=== PATIENT | male | born 1945 | race Caucasian/White ===

== ENCOUNTER → 2016-10-10 | Day surgery (SDC) | payer MEDICARE, MEDICAID ==
--- NOTE | 2016-10-06 17:01 | Pre-Procedure Note/Attestation ---
Pre-Procedure Note/Attestation Complete Prior to Procedure Planned Procedure: right Procedure Narrative: 1. CATARACT EXTRACTION WITH PHACO AND PC IOL IMPLANTATION, RIGHT EYE. Indications for Procedure Pre-Operative Diagnosis: 1. CATARACT ,RIGHT EYE Attestation I attest that I discussed the nature of the procedure; its benefits; risks and complications; and alternatives (and the risks and benefits of such alternatives ), prior to the procedure, with the patient (or the patient's legal communications representative). I attest that, if there was a reasonable possibility of needing a blood transfusion, the patient (or the patient's legal communications representative) was given the [place] [facility] standardized written summary, pursuant to the William Rozina Blood Safety Act ([place] Health and Safety Code # 1645, as amended). I attest that I re-evaluated the patient just prior to the surgery and that there has been no change in the patient's H&P, except as documented below: LYNDA TIJERINA Oct 06, 2016 17:01
[2016-10-10] VITALS (8 sets, daily range): BP systolic 130–160; BP diastolic 72–89
[~2016-10-10] VITALS: Ht 172.7 cm; Wt 83.9 kg
[~2016-10-10] MED LIST: Akten 3.5% 1ml Btl ONE; BSS 15ml BTL ONE; BSS 500ml btl ONE; Dexamethasone 4mg/ml vial ONE; Diclofenac Sod 0.1% Op Soln ONE; DiphenhydrAMINE 50mg/ml Inj IVP PRN; DiphenhydrAMINE 50mg/ml Inj ONE; EPINEPHrine 1mg/1ml Amp ONE; Gatifloxacin Opth Solution 0.5% ONE; LR 1000ml 1,000 ML IVLG SCH; LR 1000ml ONE; Labetalol 5mg/ml 20ml vial IV PRN; Lidocaine 1% MPF 10mg/ml 5ml ONE; NKM; NS Irrig 1000ml ONE; Phenylephrine 10% Opth Soln 5ml ONE; Povidone-Iodine 5% opth solution ONE; Sodium Hyaluronate 10 mg/ml 0.85ml ONE; Sterile Water Irrig 1000ml IRRIG ONE; Tropicamide 1% Opth Soln ONE; acetaZOLAMIDE 125mg tab ORAL ONE; fentaNYL 100 mcg/2 mL IV ONE
[2016-10-10] MEDS: Tropicamide 1% Opth Soln RIGHT EYE SCH ×3 (07:03→07:26)
[2016-10-10] MEDS: Phenylephrine 10% Opth Soln 5ml RIGHT EYE SCH ×3 (07:03→07:26)
[2016-10-10] MEDS: Akten 3.5% 1ml Btl RIGHT EYE SCH ×3 (07:03→07:26)
[2016-10-10] MEDS: Diclofenac Sod 0.1% Op Soln RIGHT EYE SCH ×3 (07:03→07:26)
[2016-10-10] MEDS: Gatifloxacin Opth Solution 0.5% RIGHT EYE SCH ×3 (07:04→07:26)
--- NOTE | 2016-10-10 07:27 | Anethesia Preoperative Eval ---
Anesthesia Pre-op PMH/ROS General Date of Evaluation: Oct 10, 2016 Anesthesiologist: Steve ASA Score: ASA 2 Mallampati Score Class I : Soft palate, uvula, fauces, pillars visible Class II: Soft palate, uvula, fauces visible Class III: Soft palate, base of uvula visible Class IV: Only hard plate visible Mallampati Classification: Class II Surgeon: Raman Diagnosis: Right cataract Surgical Procedure: Right cataract extraction with IOL Anesthesia History: none Family History: no anesthesia problems Allergies: Coded Allergies: No Known Allergies (Unverified , 10/06/16) Medications: see eMAR Past Medical History Cardiovascular: Denies: CAD, HTN, [place], arrhythmia, other, valve dz Pulmonary: Denies: COPD, YOBANY, asthma, other Gastrointestinal/Genitourinary: Reports: other - BPH, Denies: CRI, ESRD, GERD Neurologic/Psychiatric: Denies: CVA, TIA, dementia, depression/anxiety, other Endocrine: Denies: DM, hypothyroidism, other, steroids HEENT: Reports: cataract (R), Denies: [place] (L), [place] (R), cataract (L), glaucoma, other Hematology/Immune: Denies: DVT, anemia, bleeding disorder, other Musculoskeletal/Integumentary: Reports: OA, Denies: DDD, DJD, RA, edema, other PSxH Narrative: Left shoulder arthroscopy, right arm sx Anesthesia Pre-op Phys. Exam Physician Exam Last Vital Signs Date Time Temp Pulse Resp B/P Pulse Ox O2 Delivery O2 Flow Rate FiO2 10/10/16 07:08 97.9 73 20 137/77 96 Room Air Constitutional: NAD Cardiovascular: RRR Respiratory: CTA Airway Exam Mallampati Score: Class II MO: full ROM: full Teeth: intact Anesthesia Pre-op A/P Labs see chart Studies Pre-op Studies: EKG - sr Risk Assessment & Plan Assessment: ASA II Plan: MAC Status Change Before Surgery: No Pre-Antibiotics Drug: N/A CELINE YOST M.D. Oct 10, 2016 07:27
[2016-10-10 07:47] LABS: EOSINOPHILS % (AUTO) 1.4 % (0.0-3.0); MEAN CORPUSCULAR HEMOGLOBIN 30.1 PG (27.0-31.0); MEAN CORPUSCULAR HGB CONC 32.9 G/DL (32.0-36.0); MEAN CORPUSCULAR VOLUME 91 FL (80-99); MEAN PLATELET VOLUME 6.9 FL (6.5-10.1); MONOCYTES % (AUTO) 8.6 % (1.0-10.0); PLATELET COUNT 218 K/UL (150-450); RED BLOOD COUNT 5.37 M/UL (4.70-6.10); WHITE BLOOD COUNT 8.5 K/UL (4.8-10.8)
[2016-10-10 08:01] LABS: ANION GAP 15 (5-15); CALCIUM 9.3 mg/dL (8.6-10.2); CARBON DIOXIDE 25 mEQ/L (20-30); CHLORIDE 98 mEQ/L (98-107); GLOMERULAR FILTRATION RATE > 60 mL/min (>60); HEMOLYSIS 34; POTASSIUM 4.2 mEQ/L (3.4-4.9); SODIUM 138 mEQ/L (135-145)
--- NOTE | 2016-10-10 09:08 | Brief Operative Note ---
Immediate Post Operative Note Operative Note Chief Complaint: Blurry vision, difficulty driving and reading, right eye Pre-op Diagnosis: 1. CATARACT ,RIGHT EYE Procedure: Cataract extraction with ohaco and PC IOL implantation, right eye Post-op Diagnosis: same as pre-op Surgeon: Lynda Camargo MD. Court Manager: None Additional Surgeons: None Anesthesiologist: Dr. Wilson Anesthesia: MAC Specimen: none Complications: none Condition: stable Estimated Blood Loss: none Drains: none Implant(s) used?: Yes - Monofocal PC IOL implanted in the right eye without complication, right eye LYNDA CAMARGO Oct 10, 2016 09:08
--- NOTE | 2016-10-10 09:08 | Immediate Post-Op Evaluation ---
Immediate Post-Op Evalulation Immediate Post-Op Evalulation Procedure: Right cataract extraction with IOL Date of Evaluation: Oct 10, 2016 Time of Evaluation: 09:09 IV Fluids: 300 Blood Products: 0 Estimated Blood Loss: 0 Urinary Output: 0 Blood Pressure Systolic: 160 Blood Pressure Diastolic: 86 Pulse Rate: 68 Respiratory Rate: 16 O2 Sat by Pulse Oximetry: 97 Temperature (Fahrenheit): 98.1 Pain Score (1-10): 0 CELINE YOST M.D. Oct 10, 2016 09:08
--- NOTE | 2016-10-10 10:26 | 48 Hour Post Anesthesia Eval ---
Post Anesthesia Evaluation Procedure: Right cataract extraction with IOL Date of Evaluation: Oct 10, 2016 Time of Evaluation: 09:59 Blood Pressure Systolic: 132 0: 72 Pulse Rate: 74 Respiratory Rate: 17 Temperature (Fahrenheit): 98.6 O2 Sat by Pulse Oximetry: 96 Airway: patent Nausea: No Vomiting: No Pain Intensity: 0 Hydration Status: adequate Cardiopulmonary Status: at baseline Mental Status/LOC: patient returned to baseline Post-Anesthesia Complications: 0 Follow-up care needed: ready to discharge CELINE YOST M.D. Oct 10, 2016 10:26
--- NOTE | 2016-10-10 19:28 | Operative Note - Dictated ---
DATE OF OPERATION: 10/10/2016 FACILITY: [facility]. SURGEON: Kumar Camargo M.D. MARKETING ASSISTANT MANAGER: None. ANESTHESIOLOGIST: Dr. Wilson. ANESTHESIA: Monitored anesthesia care (MAC). PREOPERATIVE DIAGNOSIS: Cataract right eye. POSTOPERATIVE DIAGNOSIS: Cataract right eye. SURGERY PERFORMED: Cataract extraction with phacoemulsification and posterior chamber intraocular lens implantation in the right eye. INDICATIONS: The patient is a 71-year-old gentleman with unremarkable past medical history. He has left shoulder and arm surgery two years ago. He is complaining of blurry vision in the right eye. On examination of the right eye, the cornea is clear. Anterior chamber is clean and quiet but very shallow anterior chamber. Pupillary reflex is normal. There is no RAPD. There is 4+ nuclear sclerosis and 2+ cortical cataract. Funduscopy shows normal optic disc, normal macula, and normal periphery retina. To improve his vision in the right eye, the cataract has to be removed and posterior chamber intraocular lens has to be implanted. INFORMED CONSENT: The nature of the surgery, risks, benefits, alternatives and potential complications were explained all in detail to the patient. The potential complications including, but not limited to bleeding, infection, posterior capsular rupture, lens subluxation, flat anterior chamber, iris prolapse, uveitis, corneal edema, macular edema, endophthalmitis, retinal detachment, loss of vision, and even loss of the eye were all explained in detail to the patient. The patient voiced understanding and accepted all the complications. The alternatives including accommodating lenses, multifocal lenses, toric lens, and conventional cataract surgery with limbal relaxing incision(LRI) for treatment of astigmatism were all explained in detail to the patient. The patient voiced understanding. The patient elected to have only conventional cataract surgery in the right eye. Then, he signed the consent form, which is in the chart. DESCRIPTION OF SURGERY AND FINDINGS: Following that, the patient was taken to the operation room in a stable condition. Lidocaine gel Akten 3.5% were applied to the conjunctiva of the right eye. IV sedation was given by the anesthesiologist, Dr. Wilson. After adequate anesthesia and sedation had been achieved, the right eye was prepped and draped in a sterile fashion for intraocular surgery. Following that, a speculum was placed in the right eye. Following that, using a Super Sharp knife, a clear corneal side port was created. A 1% lidocaine without preservative (MPF) was injected into the anterior chamber. Following that, 2.8 mm keratome, temporal keratotomy was performed. Viscoelastic agent was injected into the anterior chamber again. Following that, Vision blue was injected under the viscoelastic agent. Following that, a clear fresh viscoelastic agent was injected into the anterior chamber. Under viscoelastic agent, an anterior capsulotomy was performed in the fashion of capsulorrhexis beautifully. Following that, all viscoelastic agent was removed from the anterior chamber. Following that, with balanced salt solution hydrodissection and hydrodelineation was performed and the nucleus was freed. Following that, viscoelastic agent was injected into the anterior chamber to protect the endothelium of the cornea. Following that, using the phacoemulsification machine in the fashion of horizontal chop, the nucleus was removed in toto. Following that, cortical material was removed from the capsular bag using irrigation aspiration unit and capsular bag was polished. Following that, the capsular bag was filled with viscoelastic agent, [place]. Following that, a +24 diopter [id number] foldable PCIOL with serial number was injected into the capsular bag. Using a Sinskey hook, the lens was manipulated and put in the proper position. Following that, the viscoelastic was removed from the anterior and posterior part of the lens. Following that, the anterior chamber was filled with balanced salt solution and the wound was hydrated with balanced salt solution. The wound was checked for leakage, there was no leakage. Vigamox eyedrops were applied to the conjunctiva of the right eye. The patient tolerated the surgery without complications. At the end of the surgery, the eye was patched with a clear sterile fenestrated shield. Following that, the patient was transferred to the recovery room. In the recovery room, 125 mg Diamox was given by mouth stat. Postoperative orders and directions were given to the patient. The patient will be discharged home upon stabilization. The patient will be followed in my office tomorrow morning at 7 o' clock. Kumar Camargo M.D. DR: Justin JOB#: [id number] CC:
--- NOTE | 2016-10-10 19:28 | Discharge Summary ---
DATE OF ADMISSION: 10/10/2016 DATE OF DISCHARGE: 10/10/2016 REASON FOR HOSPITALIZATION: Cataract right eye. SURGERY PERFORMED: Cataract extraction with phacoemulsification and posterior chamber intraocular lens implantation. CONDITION IN THE HOSPITAL: The patient tolerated the procedure well without complications. CONDITION AT DISCHARGE: The patient was stable at discharge. DISCHARGE MEDICATIONS: 1. Prednisolone 1% q.i.d. one drop right eye. 2. Vigamox one drop q.i.d., right eye. 3. Ilevro eye drop one drop daily right eye. POSTOPERATIVE ORDERS: The patient has to rest at home. No bending. No lifting. No watching TV tonight. POSTOPERATIVE FOLLOWUP: The patient will be followed in the office tomorrow morning at 7 o'clock. Kumar Camargo M.D. DR: Justin JOB#: [id number] CC:
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
== END | disposition home or self-care (01) ==
LOC: SUR 06:30
DX: H25.11 Age-related nuclear cataract, right eye (principal); H25.011 Cortical age-related cataract, right eye; K21.9 Gastro-esophageal reflux disease without esophagitis; N40.0 Benign prostatic hyperplasia without lower urinary tract symptoms; M19.90 Unspecified osteoarthritis, unspecified site; M51.86 Other intervertebral disc disorders, lumbar region; I50.9 Heart failure, unspecified; Z87.891 Personal history of nicotine dependence
CPT/HCPCS: 36415; 66984; 80048; 85025; 93005; J0171; J1100; J1200; J3010; J7120; V2632; 94003; 94150

== ENCOUNTER 2016-10-17 13:18 | Inpatient (IN) | payer MEDICARE, MEDICAID ==
[~2016-10-17] VITALS: Ht 172.7 cm; Wt 83.9 kg
[~2016-10-17 13:18] MED LIST changes: -BSS 15ml BTL ONE; -BSS 500ml btl ONE; -Dexamethasone 4mg/ml vial ONE; -DiphenhydrAMINE 50mg/ml Inj IVP PRN; -DiphenhydrAMINE 50mg/ml Inj ONE; -EPINEPHrine 1mg/1ml Amp ONE; -LR 1000ml 1,000 ML IVLG SCH; -LR 1000ml ONE; -Labetalol 5mg/ml 20ml vial IV PRN; -Lidocaine 1% MPF 10mg/ml 5ml ONE; -Metoclopramide 10mg/2ml Inj IVP ONE; -Povidone-Iodine 5% opth solution ONE; -Sodium Hyaluronate 10 mg/ml 0.85ml ONE; -acetaZOLAMIDE 125mg tab ORAL ONE; -fentaNYL 100 mcg/2 mL IV ONE
[2016-10-17 14:22] LABS: MEAN CORPUSCULAR HGB CONC 33.2 G/DL (32.0-36.0); MEAN CORPUSCULAR VOLUME 90 FL (80-99); MEAN PLATELET VOLUME 8.1 FL (6.5-10.1); PLATELET COUNT 112 K/UL (150-450); RED BLOOD COUNT 6.12 M/UL (4.70-6.10); RED CELL DISTRIBUTION WIDTH 11.5 % (11.6-14.8)
[2016-10-17 14:32] LABS: INR 1.1 (0.9-1.1); PROTHROMBIN TIME 11.4 SEC (9.30-11.50)
[2016-10-17 14:38] LABS: ALBUMIN/GLOBULIN RATIO 1.1 (1.0-2.7); CALCIUM 7.8 mg/dL (8.6-10.2); CREATININE 1.2 mg/dL (0.7-1.2); GLOMERULAR FILTRATION RATE 59.9 mL/min (>60); POTASSIUM 3.4 mEQ/L (3.4-4.9); TOTAL PROTEIN 5.7 g/dL (6.6-8.7); TROPONIN I < 0.30 ng/mL (<=0.30)
[2016-10-17 14:49] LABS: CKMB 3.6 ng/mL (< 6.7)
[2016-10-17 14:59] LABS: BILIRUBIN,DIRECT 0.7 mg/dL (0.1-0.3)
[2016-10-17] MEDS ORDERED: cefTRIAXone 1 GM in NS 55 ML IVPB ONE (15:00)
[2016-10-17] MEDS ORDERED: Acetaminophen 500mg (ES) tab ORAL ONE (15:30)
--- NOTE | 2016-10-17 15:52 | Emergency Room Report ---
History of Present Illness General Chief Complaint: Dyspnea/Respdistress Source: Patient, Caregiver Present Illness HPI Patient presents accompanied by his son. He had been in the operating room for a cataract surgery on his left eye. After the surgery he went to the bathroom started feeling poorly. He became short of breath and was evaluated by the postop team and found to have a low oxygen saturation. He was rushed out of the emergency department. At this time he has no complaints. His son reports that he has had cough and congestion and fever and chills for the past week or so. He denies chest pain or abdominal pain. He has no other complaints. Allergies: Coded Allergies: No Known Allergies (Unverified , 10/06/16) Patient History Past Medical History: see triage record Past Surgical History: other - cataracts Social History: Denies: alcohol use, drug use, smoking Reviewed Nursing Documentation: PMH: Agreed, PSxH: Agreed Nursing Documentation-PMH Past Medical History: No History, Except For Hx Cancer: No Hx Gastrointestinal Problems: No Hx Neurological Problems: No Review of Systems All Other Systems: negative except mentioned in HPI Physical Exam Vital Signs Date Time Temp Pulse Resp B/P Pulse Ox O2 Delivery O2 Flow Rate FiO2 10/17/16 13:24 99.1 132 42 139/65 99 Non-Rebreather 15.0 Sp02 EP Interpretation: reviewed, normal General Appearance: no apparent distress, alert, GCS 15, non-toxic Head: normocephalic, atraumatic Eyes: bilateral eye PERRL, bilateral eye normal inspection ENT: hearing grossly normal, normal pharynx, no angioedema, normal voice Neck: full range of motion, supple/symm/no masses Respiratory: no respiratory distress, no retraction, no accessory muscle use, rhonchi, speaking full sentences Cardiovascular #1: no edema, tachycardia Gastrointestinal: normal bowel sounds, non tender, soft, non-distended, no guarding, no rebound Rectal: deferred Musculoskeletal: back normal, gait/station normal, normal range of motion, non- tender Neurologic: alert, oriented x3, responsive, motor strength/tone normal, sensory intact, speech normal Psychiatric: judgement/insight normal, memory normal, mood/affect normal, no suicidal/homicidal ideation Skin: normal color, no rash, warm/dry, well hydrated Medical Decision Making Diagnostic Impression: Primary Impression: Pneumonia ER Course This patient presented with cough and congestion and was found to have a low white blood cell count at 1.8. He is also found to be febrile. Initially he was on a nonrebreather mask that this is critically titrated down to nasal cannulae and he maintained his O2 saturations. Chest x-ray shows no obvious findings however there is some questionable early bilateral infiltrates. This could be a pneumonia. This could also be a viral process. He is given broad- spectrum antibiotics and IV fluids. He is also found be tachycardic. I am unsure why his blood cell count is low and this will have to be investigated further. The patient is admitted to telemetry for further evaluation and treatment. Labs Test 10/17/16 14:10 10/17/16 15:30 White Blood Count 1.0 K/UL (4.8-10.8) Red Blood Count 6.12 M/UL (4.70-6.10) Hemoglobin 18.4 G/DL (14.2-18.0) Hematocrit 55.4 % (42.0-52.0) Mean Corpuscular Volume 90 FL (80-99) Mean Corpuscular Hemoglobin 30.0 PG (27.0-31.0) Mean Corpuscular Hemoglobin Concent 33.2 G/DL (32.0-36.0) Red Cell Distribution Width 11.5 % (11.6-14.8) Platelet Count 112 K/UL (150-450) Mean Platelet Volume 8.1 FL (6.5-10.1) Neutrophils (%) (Auto) % (45.0-75.0) Lymphocytes (%) (Auto) % (20.0-45.0) Monocytes (%) (Auto) % (1.0-10.0) Eosinophils (%) (Auto) % (0.0-3.0) Basophils (%) (Auto) % (0.0-2.0) Prothrombin Time 11.4 SEC (9.30-11.50) Prothromb Time International Ratio 1.1 (0.9-1.1) Activated Partial Thromboplast Time 25 SEC (23-33) Sodium Level 135 mEQ/L (135-145) Potassium Level 3.4 mEQ/L (3.4-4.9) Chloride Level 96 mEQ/L (98-107) Carbon Dioxide Level 22 mEQ/L (20-30) Anion Gap 17 (5-15) Blood Urea Nitrogen 25 mg/dL (7-23) Creatinine 1.2 mg/dL (0.7-1.2) Estimat Glomerular Filtration Rate 59.9 mL/min (>60) Glucose Level 176 mg/dL (74-106) Calcium Level 7.8 mg/dL (8.6-10.2) Total Bilirubin 1.3 mg/dL (0.0-1.2) Direct Bilirubin 0.7 mg/dL (0.1-0.3) Aspartate Amino Transf (AST/SGOT) 46 U/L (5-40) Alanine Aminotransferase (ALT/SGPT) 45 U/L (3-41) Alkaline Phosphatase 60 U/L (40-129) Total Creatine Kinase 356 U/L (38-174) Creatine Kinase MB 3.6 ng/mL (< 6.7) Creatine Kinase MB Relative Index 1.0 Troponin I < 0.30 ng/mL (<=0.30) Pro-B-Type Natriuretic Peptide 22 pg/mL (0-125) Total Protein 5.7 g/dL (6.6-8.7) Albumin 3.1 g/dL (3.5-5.2) Globulin 2.6 g/dL Albumin/Globulin Ratio 1.1 (1.0-2.7) EKG Diagnostic Results Rate: tachycardiac Rhythm: other ST Segments: no acute changes Other Impression S.tachycardia. NSST Rhythm Strip Diag. Results EP Interpretation: yes Rate: 120's Rhythm: no PVC's, no ectopy Other Impression S.tachycardia Chest X-Ray Diagnostic Results EP Interpretation: Yes Findings: no effusion, no pneumothorax, no acute cardiopulmonary disease Number of Views: 1 Other Impression bilateral interstitial infiltrates. Last Vital Signs Date Time Temp Pulse Resp B/P Pulse Ox O2 Delivery O2 Flow Rate FiO2 10/17/16 13:24 99.1 132 42 139/65 99 Non-Rebreather 15.0 Disposition: ADMITTED INPATIENT Condition: Serious HARDY MILLER D.O. Oct 17, 2016 15:52
[2016-10-17 16:07] LABS: APPEARANCE,URINE CLEAR; KETONES,URINE 1+ (NEGATIVE); LEUKOCYTE ESTERASE ,URINE 1+ (NEGATIVE); NITRITE,URINE NEGATIVE (NEGATIVE); PH,URINE 5 (4.5-8.0); PROTEIN,URINE 2+ (NEGATIVE); UROBILINOGEN,URINE 4 MG/DL (0.0-1.0)
[2016-10-17 16:17] VITALS: BP 116/64
[2016-10-17 16:27] LABS: ICTOTEST POSITIVE
[2016-10-17 16:34] LABS: RBC,URINE 0-2 /HPF (0 - 0); WBC,URINE 0-2 /HPF (0 - 0)
[2016-10-17 16:35] LABS: BACTERIA,URINE MODERATE /HPF
[2016-10-17 18:06] LABS: BAND NEUTROPHILS % (MANUAL) 16 % (0-8)
[2016-10-17 18:11] LABS: BASOPHILS % (MANUAL) 0 % (0-2); EOSINOPHILS % (MANUAL) 1 % (0-3); LYMPHOCYTES % (MANUAL) 19 % (20-45); NEUTROPHILS % (MANUAL) 54 % (45-75); PLATELET ESTIMATE DECREASED; POLYCHROMASIA 1+; TOTAL CELLS COUNTED 100
[2016-10-17 18:35] VITALS: BP 98/58
[2016-10-17 20:35] VITALS: BP 98/57
[2016-10-17 21:14] VITALS: BP 111/62
[2016-10-17 21:51] VITALS: BP 111/62
[2016-10-17] MEDS ORDERED: Acetaminophen 500mg (ES) tab ORAL PRN (22:45)
[2016-10-17 23:52] VITALS: BP 106/62
[2016-10-18] MEDS ORDERED: Vancomycin 1gm in D5W 275ml IVPB SCH ×2
[2016-10-18] MEDS ORDERED: Vancomycin 1gm inj IVPB ONE (02:10)
[2016-10-18] MEDS: Vancomycin 1gm in D5W 275ml IVPB SCH ×2 (02:33→14:50)
[2016-10-18 03:49] VITALS: BP 100/65
[2016-10-18 07:40] VITALS: BP 118/66
[2016-10-18] MEDS ORDERED: Enoxaparin 30mg Inj SUBQ SCH (09:00)
[2016-10-18] MEDS ORDERED: Enoxaparin 120 mg inj SUBQ SCH ×2 (09:00)
[2016-10-18 09:04] LABS: BASOPHILS % (AUTO) 0.3 % (0.0-2.0); EOSINOPHILS % (AUTO) 0.2 % (0.0-3.0); LYMPHOCYTES % (AUTO) 19.7 % (20.0-45.0); MEAN CORPUSCULAR HEMOGLOBIN 30.2 PG (27.0-31.0); MEAN CORPUSCULAR HGB CONC 33.5 G/DL (32.0-36.0); MEAN CORPUSCULAR VOLUME 90 FL (80-99); MEAN PLATELET VOLUME 8.5 FL (6.5-10.1); MONOCYTES % (AUTO) 6.8 % (1.0-10.0); PLATELET COUNT 131 K/UL (150-450); RED BLOOD COUNT 5.74 M/UL (4.70-6.10); RED CELL DISTRIBUTION WIDTH 11.7 % (11.6-14.8); WHITE BLOOD COUNT 3.6 K/UL (4.8-10.8)
[2016-10-18 09:28] LABS: CALCIUM 7.4 mg/dL (8.6-10.2); CREATININE 1.2 mg/dL (0.7-1.2); GLOMERULAR FILTRATION RATE 59.9 mL/min (>60); POTASSIUM 3.7 mEQ/L (3.4-4.9)
[2016-10-18] MEDS: Enoxaparin 30mg Inj SUBQ SCH ×2 (09:28→21:44)
[2016-10-18 09:29] LABS: TROPONIN I < 0.30 ng/mL (<=0.30)
--- NOTE | 2016-10-18 10:35 | General Progress Note ---
Subjective Constitutional: Reports: weakness HEENT: Reports: eye pain Cardiovascular: Reports: palpitations Respiratory: Reports: SOB with excertion, cough Gastrointestinal/Abdominal: Reports: no symptoms Genitourinary: Reports: no symptoms Neurologic/Psychiatric: Reports: no symptoms Endocrine: Reports: no symptoms Hematologic/Lymphatic: Reports: anemia Allergies: Coded Allergies: No Known Allergies (Unverified , 10/06/16) Objective Last 24 Hour Vital Signs Date Time Temp Pulse Resp B/P Pulse Ox O2 Delivery O2 Flow Rate FiO2 10/18/16 08:00 111 10/18/16 07:40 97.9 111 20 118/66 95 Room Air 10/18/16 03:49 98.4 105 22 100/65 96 Room Air 10/17/16 23:52 98.8 101 20 106/62 93 Room Air 10/17/16 21:51 98.4 98 20 111/62 93 Room Air 10/17/16 21:14 98.4 98 20 111/62 92 Room Air 10/17/16 21:00 97.8 98 24 98/57 96 Room Air 99 10/17/16 20:35 97.8 99 22 98/57 96 Room Air 10/17/16 18:35 97.8 98 24 98/58 96 Room Air 10/17/16 18:21 97.8 10/17/16 16:18 117 47 Nasal Cannula 2.0 10/17/16 16:17 104.0 107 47 116/64 97 Nasal Cannula 2.0 10/17/16 13:24 99.1 132 42 139/65 99 Non-Rebreather 15.0 Intake and Output 10/17/16 10/18/16 19:00 07:00 # Voids 2 # Bowel Movements 2 2 Laboratory Tests 10/17/16 14:10: White Blood Count 1.0*L, Red Blood Count 6.12H, Hemoglobin 18.4*H, Hematocrit 55.4H, Mean Corpuscular Volume 90, Mean Corpuscular Hemoglobin 30.0, Mean Corpuscular Hemoglobin Concent 33.2, Red Cell Distribution Width 11.5L, Platelet Count 112L, Mean Platelet Volume 8.1, Neutrophils (%) (Auto) , Lymphocytes (%) (Auto) , Monocytes (%) (Auto) , Eosinophils (%) (Auto) , Basophils (%) (Auto) , Differential Total Cells Counted 100, Neutrophils % ( Manual) 54, Lymphocytes % (Manual) 19L, Monocytes % (Manual) 10, Eosinophils % ( Manual) 1, Basophils % (Manual) 0, Band Neutrophils 16H, Platelet Estimate DecreasedL, Platelet Morphology , Giant Platelets Rare, Polychromasia 1+, Prothrombin Time 11.4, Prothromb Time International Ratio 1.1, Activated Partial Thromboplast Time 25, Sodium Level 135, Potassium Level 3.4, Chloride Level 96L, Carbon Dioxide Level 22, Anion Gap 17H, Blood Urea Nitrogen 25H, Creatinine 1.2, Estimat Glomerular Filtration Rate 59.9, Glucose Level 176H, Calcium Level 7.8L, Total Bilirubin 1.3H, Direct Bilirubin 0.7H, Aspartate Amino Transf (AST/SGOT) 46H, Alanine Aminotransferase (ALT/SGPT) 45H, Alkaline Phosphatase 60, Total Creatine Kinase 356H, Creatine Kinase MB 3.6, Creatine Kinase MB Relative Index 1.0, Troponin I < 0.30, Pro-B-Type Natriuretic Peptide 22, Total Protein 5.7L, Albumin 3.1L, Globulin 2.6, Albumin/Globulin Ratio 1.1 10/17/16 15:30: Urine Color Brown, Urine Appearance Clear, Urine pH 5, Urine Specific [place] 1.015, Urine Protein 2+H, Urine Glucose (UA) Negative, Urine Ketones 1+H, Urine Occult Blood 1+H, Urine Nitrite Negative, Urine Bilirubin 1+H, Urine Ictotest Positive, Urine Urobilinogen 4H, Urine Leukocyte Esterase 1+H, Urine RBC 0-2H, Urine WBC 0-2, Urine Squamous Epithelial Cells None, Urine Bacteria ModerateH 10/17/16 17:45: White Blood Count [Pending], Red Blood Count [Pending], Hemoglobin [Pending], Hematocrit [Pending], Mean Corpuscular Volume [Pending], Mean Corpuscular Hemoglobin [Pending], Mean Corpuscular Hemoglobin Concent [Pending], Red Cell Distribution Width [Pending], Platelet Count [Pending], Mean Platelet Volume [ Pending], Neutrophils (%) (Auto) [Pending], Lymphocytes (%) (Auto) [Pending], Monocytes (%) (Auto) [Pending], Eosinophils (%) (Auto) [Pending], Basophils (%) (Auto) [Pending] 10/18/16 08:45: White Blood Count 3.6#L, Red Blood Count 5.74, Hemoglobin 17.4, Hematocrit 51.8 , Mean Corpuscular Volume 90, Mean Corpuscular Hemoglobin 30.2, Mean Corpuscular Hemoglobin Concent 33.5, Red Cell Distribution Width 11.7, Platelet Count 131L, Mean Platelet Volume 8.5, Neutrophils (%) (Auto) 73.0, Lymphocytes ( %) (Auto) 19.7L, Monocytes (%) (Auto) 6.8, Eosinophils (%) (Auto) 0.2, Basophils (%) (Auto) 0.3, Sodium Level 130L, Potassium Level 3.7, Chloride Level 92L, Carbon Dioxide Level 19L, Anion Gap 19H, Blood Urea Nitrogen 27H, Creatinine 1.2, Estimat Glomerular Filtration Rate 59.9, Glucose Level 250H, Calcium Level 7.4L, Troponin I < 0.30 Height (Feet): 5 Height (Inches): 8.00 Weight (Pounds): 185 GIANFRANCO THOMPSON Oct 18, 2016 10:35
[2016-10-18 11:13] VITALS: BP 119/64
--- NOTE | 2016-10-18 11:13 | General Progress Note ---
Subjective Allergies: Coded Allergies: No Known Allergies (Unverified , 10/06/16) Objective Last 24 Hour Vital Signs Date Time Temp Pulse Resp B/P Pulse Ox O2 Delivery O2 Flow Rate FiO2 10/18/16 08:00 111 10/18/16 07:40 97.9 111 20 118/66 95 Room Air 10/18/16 03:49 98.4 105 22 100/65 96 Room Air 10/17/16 23:52 98.8 101 20 106/62 93 Room Air 10/17/16 21:51 98.4 98 20 111/62 93 Room Air 10/17/16 21:14 98.4 98 20 111/62 92 Room Air 10/17/16 21:00 97.8 98 24 98/57 96 Room Air 99 10/17/16 20:35 97.8 99 22 98/57 96 Room Air 10/17/16 18:35 97.8 98 24 98/58 96 Room Air 10/17/16 18:21 97.8 10/17/16 16:18 117 47 Nasal Cannula 2.0 10/17/16 16:17 104.0 107 47 116/64 97 Nasal Cannula 2.0 10/17/16 13:24 99.1 132 42 139/65 99 Non-Rebreather 15.0 Intake and Output 10/17/16 10/18/16 19:00 07:00 # Voids 2 # Bowel Movements 2 2 Laboratory Tests 10/17/16 14:10: White Blood Count 1.0*L, Red Blood Count 6.12H, Hemoglobin 18.4*H, Hematocrit 55.4H, Mean Corpuscular Volume 90, Mean Corpuscular Hemoglobin 30.0, Mean Corpuscular Hemoglobin Concent 33.2, Red Cell Distribution Width 11.5L, Platelet Count 112L, Mean Platelet Volume 8.1, Neutrophils (%) (Auto) , Lymphocytes (%) (Auto) , Monocytes (%) (Auto) , Eosinophils (%) (Auto) , Basophils (%) (Auto) , Differential Total Cells Counted 100, Neutrophils % ( Manual) 54, Lymphocytes % (Manual) 19L, Monocytes % (Manual) 10, Eosinophils % ( Manual) 1, Basophils % (Manual) 0, Band Neutrophils 16H, Platelet Estimate DecreasedL, Platelet Morphology , Giant Platelets Rare, Polychromasia 1+, Prothrombin Time 11.4, Prothromb Time International Ratio 1.1, Activated Partial Thromboplast Time 25, Sodium Level 135, Potassium Level 3.4, Chloride Level 96L, Carbon Dioxide Level 22, Anion Gap 17H, Blood Urea Nitrogen 25H, Creatinine 1.2, Estimat Glomerular Filtration Rate 59.9, Glucose Level 176H, Calcium Level 7.8L, Total Bilirubin 1.3H, Direct Bilirubin 0.7H, Aspartate Amino Transf (AST/SGOT) 46H, Alanine Aminotransferase (ALT/SGPT) 45H, Alkaline Phosphatase 60, Total Creatine Kinase 356H, Creatine Kinase MB 3.6, Creatine Kinase MB Relative Index 1.0, Troponin I < 0.30, Pro-B-Type Natriuretic Peptide 22, Total Protein 5.7L, Albumin 3.1L, Globulin 2.6, Albumin/Globulin Ratio 1.1 10/17/16 15:30: Urine Color Brown, Urine Appearance Clear, Urine pH 5, Urine Specific [place] 1.015, Urine Protein 2+H, Urine Glucose (UA) Negative, Urine Ketones 1+H, Urine Occult Blood 1+H, Urine Nitrite Negative, Urine Bilirubin 1+H, Urine Ictotest Positive, Urine Urobilinogen 4H, Urine Leukocyte Esterase 1+H, Urine RBC 0-2H, Urine WBC 0-2, Urine Squamous Epithelial Cells None, Urine Bacteria ModerateH 10/17/16 17:45: White Blood Count [Pending], Red Blood Count [Pending], Hemoglobin [Pending], Hematocrit [Pending], Mean Corpuscular Volume [Pending], Mean Corpuscular Hemoglobin [Pending], Mean Corpuscular Hemoglobin Concent [Pending], Red Cell Distribution Width [Pending], Platelet Count [Pending], Mean Platelet Volume [ Pending], Neutrophils (%) (Auto) [Pending], Lymphocytes (%) (Auto) [Pending], Monocytes (%) (Auto) [Pending], Eosinophils (%) (Auto) [Pending], Basophils (%) (Auto) [Pending] 10/18/16 08:45: White Blood Count 3.6#L, Red Blood Count 5.74, Hemoglobin 17.4, Hematocrit 51.8 , Mean Corpuscular Volume 90, Mean Corpuscular Hemoglobin 30.2, Mean Corpuscular Hemoglobin Concent 33.5, Red Cell Distribution Width 11.7, Platelet Count 131L, Mean Platelet Volume 8.5, Neutrophils (%) (Auto) 73.0, Lymphocytes ( %) (Auto) 19.7L, Monocytes (%) (Auto) 6.8, Eosinophils (%) (Auto) 0.2, Basophils (%) (Auto) 0.3, Sodium Level 130L, Potassium Level 3.7, Chloride Level 92L, Carbon Dioxide Level 19L, Anion Gap 19H, Blood Urea Nitrogen 27H, Creatinine 1.2, Estimat Glomerular Filtration Rate 59.9, Glucose Level 250H, Calcium Level 7.4L, Troponin I < 0.30 Height (Feet): 5 Height (Inches): 8.00 Weight (Pounds): 185 General Appearance: no apparent distress, alert EENT: PERRL/EOMI, TMs normal Neck: supple Cardiovascular: tachycardia Respiratory/Chest: lungs clear Abdomen: normal bowel sounds, non tender, soft Pelvis: normal external exam Extremities: normal range of motion, non-tender, normal inspection Edema: no edema noted Arm (L), no edema noted Arm (R), no edema noted Leg (L), no edema noted Leg (R), no edema noted Pedal (L), no edema noted Pedal (R), no edema noted 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 LFT eievated. No abdom pain.WBC 1,0 TO 3,6. rE,aBDOM ultrasound id.cARDIOLOGY.hEMATONOGY CONSUNTATION. CONTINUE ab.f/UP LAB., normal posterior cervical (L), normal posterior cervical (R), normal submandibular (L), normal submandibular (R), normal supraclavicular (L), normal supraclavicular (R) GIANFRANCO THOMPSON Oct 18, 2016 11:13
--- NOTE | 2016-10-18 14:25 | Infectious Diseases Prog Note ---
Assessment/Plan Assessment/Plan Full consult dictated: A) 1) possible sepsis, fevers, leukopenia, sirs 2) possible cap, uri/bronchitis, ? viral syndrome, ? uti 3) mild increase in LFT's and TB, no abdominal pain 4) s/p left eye cataracts, pmh o/w negative 5) mar noted, notes and records noted, sh-negative, fh-nc 6) d/w RN P) 1) rocephin, flagyl, vancomycin 2) check us, labs, chest x-ray, cultures 3) orders entered and noted 4) continue treatment per primary and consultants 5) d/w Dr. Christian 6) thank you Subjective Allergies: Coded Allergies: No Known Allergies (Unverified , 10/06/16) Objective Vital Signs Last 24 Hour Vital Signs Date Time Temp Pulse Resp B/P Pulse Ox O2 Delivery O2 Flow Rate FiO2 10/18/16 11:13 99.3 111 20 119/64 94 Room Air 10/18/16 08:00 111 10/18/16 07:40 97.9 111 20 118/66 95 Room Air 10/18/16 03:49 98.4 105 22 100/65 96 Room Air 10/17/16 23:52 98.8 101 20 106/62 93 Room Air 10/17/16 21:51 98.4 98 20 111/62 93 Room Air 10/17/16 21:14 98.4 98 20 111/62 92 Room Air 10/17/16 21:00 97.8 98 24 98/57 96 Room Air 99 10/17/16 20:35 97.8 99 22 98/57 96 Room Air 10/17/16 18:35 97.8 98 24 98/58 96 Room Air 10/17/16 18:21 97.8 10/17/16 16:18 117 47 Nasal Cannula 2.0 10/17/16 16:17 104.0 107 47 116/64 97 Nasal Cannula 2.0 Height (Feet): 5 Height (Inches): 8.00 Weight (Pounds): 185 Microbiology Date/Time Source Procedure Growth Status 10/17/16 15:30 Urine,Clean Catch Urine Culture - Preliminary Resulted Laboratory Tests Test 10/17/16 15:30 10/17/16 17:45 10/18/16 08:45 Urine Color Brown Urine Appearance Clear Urine pH 5 (4.5-8.0) Urine Specific [place] 1.015 (1.005-1.035) Urine Protein 2+ (NEGATIVE) H Urine Glucose (UA) Negative (NEGATIVE) Urine Ketones 1+ (NEGATIVE) H Urine Occult Blood 1+ (NEGATIVE) H Urine Nitrite Negative (NEGATIVE) Urine Bilirubin 1+ (NEGATIVE) H Urine Ictotest Positive Urine Urobilinogen 4 MG/DL (0.0-1.0) H Urine Leukocyte Esterase 1+ (NEGATIVE) H Urine RBC 0-2 /HPF (0 - 0) H Urine WBC 0-2 /HPF (0 - 0) Urine Squamous Epithelial Cells None /LPF (NONE/OCC) Urine Bacteria Moderate /HPF (NONE) H White Blood Count Pending 3.6 K/UL (4.8-10.8) #L Red Blood Count Pending 5.74 M/UL (4.70-6.10) Hemoglobin Pending 17.4 G/DL (14.2-18.0) Hematocrit Pending 51.8 % (42.0-52.0) Mean Corpuscular Volume Pending 90 FL (80-99) Mean Corpuscular Hemoglobin Pending 30.2 PG (27.0-31.0) Mean Corpuscular Hemoglobin Concent Pending 33.5 G/DL (32.0-36.0) Red Cell Distribution Width Pending 11.7 % (11.6-14.8) Platelet Count Pending 131 K/UL (150-450) L Mean Platelet Volume Pending 8.5 FL (6.5-10.1) Neutrophils (%) (Auto) Pending 73.0 % (45.0-75.0) Lymphocytes (%) (Auto) Pending 19.7 % (20.0-45.0) L Monocytes (%) (Auto) Pending 6.8 % (1.0-10.0) Eosinophils (%) (Auto) Pending 0.2 % (0.0-3.0) Basophils (%) (Auto) Pending 0.3 % (0.0-2.0) Sodium Level 130 mEQ/L (135-145) L Potassium Level 3.7 mEQ/L (3.4-4.9) Chloride Level 92 mEQ/L (98-107) L Carbon Dioxide Level 19 mEQ/L (20-30) L Anion Gap 19 (5-15) H Blood Urea Nitrogen 27 mg/dL (7-23) H Creatinine 1.2 mg/dL (0.7-1.2) Estimat Glomerular Filtration Rate 59.9 mL/min (>60) Glucose Level 250 mg/dL (74-106) H Calcium Level 7.4 mg/dL (8.6-10.2) L Troponin I < 0.30 ng/mL (<=0.30) Current Medications Medications (Trade) Dose Ordered Sig/Nixon Route PRN Reason Start Time Stop Time Status Last Admin Dose Admin Acetaminophen 500 mg 500 mg Q4H PRN ORAL Prn Headache/Temp > 101 10/17/16 22:45 11/16/16 22:44 Ceftriaxone Sodium 1 gm/ Dextrose 55 ml @ 110 mls/hr Q24H IVPB 10/18/16 15:00 10/25/16 14:59 Enoxaparin Sodium (Lovenox) 30 mg EVERY 12 HOURS SUBQ 10/18/16 09:00 11/17/16 08:59 10/18/16 09:28 Ondansetron HCl (Zofran) 4 mg Q4H PRN IVP Nausea & Vomiting 10/17/16 22:45 11/16/16 22:44 Vancomycin HCl (Vanco rx to dose) 1 ea DAILY PRN MISC Per rx protocol 10/18/16 01:30 11/17/16 01:29 Vancomycin HCl/ Dextrose (Vancomycin/D5W) 275 ml @ 183.708 mls/hr Q12H IVPB 10/18/16 01:30 10/23/16 01:29 10/18/16 02:33 PORTER BADILLO Oct 18, 2016 14:25
[2016-10-18 15:17] VITALS: BP 132/66
[2016-10-18] MEDS ORDERED: Tubing IV Secondary IV ONE (16:43)
[2016-10-18] MEDS ORDERED: D5W 275ml ONE (16:43)
[2016-10-18] MEDS: cefTRIAXone 1 GM in D5W 55 ML IVPB SCH (16:45)
[2016-10-18] MEDS: Gatifloxacin Opth Solution 0.5% BOTH EYES SCH ×3 (18:06→22:30)
[2016-10-18] MEDS: Pred Forte 1% Opth Susp 1ml BOTH EYES SCH ×3 (18:06→22:30)
[2016-10-18 18:23] LABS: TROPONIN I < 0.30 ng/mL (<=0.30)
--- NOTE | 2016-10-18 18:53 | Cardiology Progress Note ---
Assessment/Plan Assessment/Plan sinsu tachy fever chills possible pulm infection diarrhea leukopenia thormbocytopenia no sx to suggect acs nor chf ivf for diarrhea id on borad i am unable to locate ekg will order one thank [id number] Objective Last 24 Hour Vital Signs Date Time Temp Pulse Resp B/P Pulse Ox O2 Delivery O2 Flow Rate FiO2 10/18/16 16:00 110 10/18/16 15:17 98.2 112 20 132/66 92 Room Air 10/18/16 12:00 104 10/18/16 11:13 99.3 111 20 119/64 94 Room Air 10/18/16 08:00 111 10/18/16 07:40 97.9 111 20 118/66 95 Room Air 10/18/16 03:49 98.4 105 22 100/65 96 Room Air 10/17/16 23:52 98.8 101 20 106/62 93 Room Air 10/17/16 21:51 98.4 98 20 111/62 93 Room Air 10/17/16 21:14 98.4 98 20 111/62 92 Room Air 10/17/16 21:00 97.8 98 24 98/57 96 Room Air 99 10/17/16 20:35 97.8 99 22 98/57 96 Room Air Intake and Output 10/17/16 10/18/16 19:00 07:00 # Voids 2 # Bowel Movements 2 2 Laboratory Tests Test 10/18/16 08:45 10/18/16 17:30 White Blood Count 3.6 K/UL (4.8-10.8) #L Red Blood Count 5.74 M/UL (4.70-6.10) Hemoglobin 17.4 G/DL (14.2-18.0) Hematocrit 51.8 % (42.0-52.0) Mean Corpuscular Volume 90 FL (80-99) Mean Corpuscular Hemoglobin 30.2 PG (27.0-31.0) Mean Corpuscular Hemoglobin Concent 33.5 G/DL (32.0-36.0) Red Cell Distribution Width 11.7 % (11.6-14.8) Platelet Count 131 K/UL (150-450) L Mean Platelet Volume 8.5 FL (6.5-10.1) Neutrophils (%) (Auto) 73.0 % (45.0-75.0) Lymphocytes (%) (Auto) 19.7 % (20.0-45.0) L Monocytes (%) (Auto) 6.8 % (1.0-10.0) Eosinophils (%) (Auto) 0.2 % (0.0-3.0) Basophils (%) (Auto) 0.3 % (0.0-2.0) Sodium Level 130 mEQ/L (135-145) L Potassium Level 3.7 mEQ/L (3.4-4.9) Chloride Level 92 mEQ/L (98-107) L Carbon Dioxide Level 19 mEQ/L (20-30) L Anion Gap 19 (5-15) H Blood Urea Nitrogen 27 mg/dL (7-23) H Creatinine 1.2 mg/dL (0.7-1.2) Estimat Glomerular Filtration Rate 59.9 mL/min (>60) Glucose Level 250 mg/dL (74-106) H Calcium Level 7.4 mg/dL (8.6-10.2) L Troponin I < 0.30 ng/mL (<=0.30) < 0.30 ng/mL (<=0.30) D-Dimer Pending Microbiology Date/Time Source Procedure Growth Status 10/17/16 15:30 Urine,Clean Catch Urine Culture - Preliminary Resulted SPENCER BARKER Oct 18, 2016 18:53
[2016-10-18 20:00] VITALS: BP 125/64
[2016-10-18] MEDS: Diclofenac Sod 0.1% Op Soln BOTH EYES SCH (21:26)
[2016-10-18] MEDS: metroNIDAZOLE 500mg 100 ML IVPB SCH (22:31)
[2016-10-19] VITALS: BP 132/76
[2016-10-19] MEDS: Pred Forte 1% Opth Susp 1ml BOTH EYES SCH ×12 (00:09→22:01)
[2016-10-19] MEDS: Gatifloxacin Opth Solution 0.5% BOTH EYES SCH ×12 (00:09→22:01)
[2016-10-19] MEDS: Diclofenac Sod 0.1% Op Soln BOTH EYES SCH ×6 (01:14→21:07)
[2016-10-19] MEDS: Vancomycin 1gm in D5W 275ml IVPB SCH ×2 (01:15→13:31)
--- NOTE | 2016-10-19 02:08 | Consultation ---
DATE OF CONSULTATION: 10/18/2016 CONSULTING PHYSICIAN: Evgeny Faulkner M.D. ATTENDING PHYSICIAN: Carole Christian M.D. REASON FOR CONSULTATION: Possible sepsis, fevers, neutropenia, and pneumonia. CHIEF COMPLAINT: The patient's chief complaint of coming into the hospital is congestion and pneumonia. HISTORY OF PRESENT ILLNESS: This is a very pleasant 71-year-old male who has no significant past medical history, but he did have cataracts, the last one was done yesterday. The patient had a cataract and after the surgery, the patient went to the bathroom feeling poorly. He became short of breath and the postoperative team saw him, he had a low oxygenation status and low saturation. The patient was admitted to the hospital for what looks like possible pneumonia. The patient has congestion and sputum. The patient, however, also could be septic. He had significant leukopenia. He had elevated heart rate, elevated respiratory rate, and temperature as high as 104 degrees, exact result is 104.0 degrees. Infectious Diseases consultation was requested for antibiotic management. The patient is on vancomycin and Rocephin. I am going to add Flagyl. His LFTs are slightly elevated, but he has no significant abdominal pain. He does have some congestion. Urinalysis is plus or minus UTI with only 0 to 2 white cells and his leukocyte esterase was positive. The patient was placed on vancomycin, Rocephin, and Flagyl and pancultured. Case was discussed with Dr. Christian, the patient and the patient's family. REVIEW OF SYSTEMS: Constitutional: The patient has generalized weakness, fatigue, status post cataracts. He had fevers yesterday, had some congestion and sputum production. No weight loss or night sweats. Head And Neck: No head pain or neck pain. No thrush or dysphagia. Cardiac: No chest pain. Gastrointestinal: No nausea, vomiting, or diarrhea. Genitourinary: No dysuria or frequency. Pulmonary: Mild congestion and cough. Skin: No rash or itching. Extremities: No extremity pain. Neurologic: No seizures. Skin: No rash. PAST MEDICAL HISTORY: Otherwise negative. He did have a cataract surgery, I think he had both, right and the most recent on the left eye on discussion with the patient's family. He has no history of diabetes or hypertension. No mention of cancer or coronary artery disease. ALLERGIES: The patient has no known drug allergies. FAMILY HISTORY: Noncontributory. No mention of exposure to tuberculosis or cancer. SOCIAL HISTORY: Negative for smoking, alcohol, or drug abuse. MEDICATIONS: Medication reconciliation was reviewed. There were no medications mentioned. Medications here, antibiotics vancomycin, Rocephin, and Flagyl, Lovenox, Zofran, and acetaminophen. Please see past medications in medical order. PHYSICAL EXAMINATION: VITAL SIGNS: Temperature 99.3 degrees, pulse rate 111, respiratory rate 20, blood pressure 119/64, and saturation 94% on room air. The patient's T-max is 104.0 degrees. Respiratory rate was in the 40s initially. GENERAL: The patient is alert and responsive, in no acute distress, maybe mild congestion. HEAD AND NECK: Oral exam, no thrush. Eye exam, no icterus. No facial droop. No neck stiffness. Neck is supple. No JVD. Normocephalic. HEART: Regular. No gallop or murmur. ABDOMEN: Soft. Positive bowel sounds. Nontender. No organomegaly. LUNGS: Clear bilaterally. No rhonchi. Possible rales in the bases. SKIN: No rash or dermatitis. MUSCULOSKELETAL: No effusions or contractures. EXTREMITIES: Without cellulitis in extremities. No cyanosis. NEUROLOGIC: Intact and nonfocal. LINES: Line sites without phlebitis. They did put an IV in this patient. It is an infiltrate, but I do not see any cellulitis. GENITOURINARY: No [place]. LABORATORY AND DIAGNOSTIC DATA: Laboratory data as follows, creatinine is 1.2. His LFTs, total bilirubin is 1.3, direct 0.7, AST 46, ALT 45, and alkaline phosphatase normal. White count of 3.6, hemoglobin 17.4, and platelet count 131,000. On admission, his white count was 1.0, hemoglobin 18.4, and platelet count 112,000. Urinalysis had 1+ leukocyte esterase, 0-2 white blood cells, and moderate bacteria. Urine culture is pending. Blood culture and sputum culture have been ordered. Chest x-ray on imaging studies shows bilateral interstitial prominence, nonspecific; possible pulmonary edema; CHF not excludable; and atelectasis. No mention of consolidation, however. Ultrasound of abdomen has been ordered. ASSESSMENT AND PLAN: 1. The patient has possible sepsis. The patient has fevers of 104 degrees, systemic inflammatory response syndrome criteria with a heart rate of 100. Elevated respiratory rate and leukopenia. If the patient is aseptic, most likely source is respiratory, but he certainly has upper respiratory infection bronchitis, possibly community-acquired pneumonia and questionable underlying viral syndrome. Questionable UTI. Mild increase in LFTs. However, there is no right upper quadrant pain or abdominal pain on exam. At this time, he is Rocephin, vancomycin, and Flagyl. The patient certainly in addition to community-acquired pneumonia could have aspirated, he just had surgery, even though there is directly there is no evidence of that. He is on Flagyl. Check urine culture, sputum culture, blood cultures, labs, ultrasound of the abdomen, and chest x-ray. The patient is receiving pulmonary treatment. Watch LFTs, watch labs, watch white cell count. 2. Leukopenia, seems to have improved, possibly secondary to sepsis with bone marrow suppression. 3. Mild increase in LFTs and total bilirubin. We will check ultrasound. 4. Status post cataracts. 5. No other significant past medical history. 6. Social history is negative. 7. Family history noncontributory. 8. MAR and notes reviewed. 9. Case was discussed with RN. 10. Allergies are negative. No known drug allergies. 11. Case was discussed with Dr. Christian. 12. Case was discussed with the patient and family. 13. Notes were reviewed. 14. Continue treatment per Dr. Christian and consultants. Evgeny Faulkner M.D. DR: MARIA DEL CARMEN JOB#: [id number] CC:
--- NOTE | 2016-10-19 03:38 | Consultation ---
DATE OF CONSULTATION: 10/18/2016 CARDIOLOGY CONSULTATION REFERRING PHYSICIAN: Carole Christian M.D. REASON FOR REFERRAL: Tachycardia. HISTORY OF PRESENT ILLNESS: This is an elderly gentleman, who was admitted and undergone a cataract extraction yesterday. Subsequently, he developed some fevers and chills and was noted to have significant tachycardia and this consultation was requested. The patient had several bouts of diarrhea last night and yesterday, but that has resolved. He has also had some coughing and some sputum production more than that he usually has in terms of the color of the sputum is now being brown. His chills and fevers have subsided. He had absolutely no pain, pressure, tightness, heaviness and discomfort in his chest. There is no shortness of breath. There is no shortness of breath on lying down. No PND or orthopnea. No palpitations. No dizziness or lightheadedness on standing position. PAST MEDICAL HISTORY: Positive for history of cataracts and prostatic enlargement. No history of heart attack. No diabetes. No high blood pressure. No cancer. No stroke. No hepatitis or tuberculosis. No asthma or emphysema. No ulcers. No kidney problems, liver problems, thyroid problems, or anemia. No blood clots any where. ALLERGIES: He is not allergic to any medications. SOCIAL HISTORY: He does not smoke, does not drink, and does not use drugs. 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 He has got a very supportive family. REVIEW OF SYSTEMS: Gastrointestinal: As mentioned, he has some nausea. No vomiting. He did have significant amount of diarrhea, especially overnight, but that has subsided. Genitourinary: Negative. Pulmonary: Positive coughing and sputum production, brown. Constitutional: Some fever and chills noted yesterday. Neurologic: Negative. PHYSICAL EXAMINATION: GENERAL: The patient is an elderly gentleman, in no apparent distress. He has a patch on his left eye. He is although awake, alert and responsive. NECK: Supple. No jugular venous distention. LUNGS: He has some crackles noted at the base. CARDIAC: Regular rate and rhythm. No heaves or thrills noted. ABDOMEN: Soft and nontender. Positive bowel sounds. EXTREMITIES: There is no clubbing, cyanosis, nor is there any edema. NEUROLOGIC: He is awake, alert, responsive, and in no apparent distress. LABORATORY AND DIAGNOSTIC DATA: His white count is reported as 1 with hemoglobin 18.4 and platelet count of 112.000 and today his white count 3.6 with hemoglobin 17.4 and platelet count of a 131,000. His sodium is 130, potassium 3.7, chloride 92, bicarbonate of 19, BUN of 27, creatinine 1.2, and glucose of 270 down from 176. His calcium is 7.8 with an albumin of 3.1 and troponin two sets are negative. Total CK of 356. His coagulation, INR is 1.1 and a PTT of 25. D-dimer is pending at this time. His urinalysis shows 0-2 WBCs and RBC and 1+ leukocyte esterase. The chest x-ray was performed and interpreted by the radiologist indicates bibasilar interstitial prominence, nonspecific, acute indeterminate element of pulmonary edema in the setting of congestive heart failure not excluded with subsegmental episode versus scarring to left lung base is noted. Of note, his white count was 8.5, preoperatively on 10/10/2016 with hemoglobin of 16.1 and platelet count of 218,000. No postoperative EKGs were available for review. Preoperative EKG shows sinus rhythm. No significant abnormalities noted. His telemetry data shows some evidence of sinus tachycardia, was not significant to any degree. ASSESSMENT AND PLAN: 1. Probable sinus tachycardia. 2. Fevers and chills, questionable sepsis. 3. Pulmonary symptoms, questionable pulmonary infection. 4. Diarrhea of significant degree. 5. Cataract extraction. 6. Leukopenia and thrombocytopenia. Dr. Christian, this patient was seen in cardiac consultation. The patient does not endorse any symptoms of coronary syndrome or congestive heart failure. He did have some bouts of diarrhea, may actually caused him to have an element of dehydration. I will start him on some intravenous fluids and an EKG will be ordered. He has had an echocardiogram, which I will after review of all that has been report shows adequate ejection fraction and no wall motion. He has already been seen by Dr. Faulkner for initiation antibiotics that cause of his leukopenia and thrombocytopenia are yet to be determined, although consideration to acute infectious processes such as viral process is usually possible. In either case, I will follow the patient along with you. D-dimer will probably not be very useful in the setting of his cataract extraction and septic syndrome and it would not be diagnostic. He has no evidence of lower extremity edema. A venous duplex study will be ordered, although he does not have any chest pain or shortness of breath to suggest any other diagnoses at this time. I will follow the patient along with you. Thank you. Brady Auguste M.D. DR: HALEY JOB#: [id number] CC: MARCIO
[2016-10-19 04:00] VITALS: BP 120/65
[2016-10-19] MEDS: metroNIDAZOLE 500mg 100 ML IVPB SCH ×4 (06:00→22:00)
[2016-10-19 07:35] LABS: MEAN CORPUSCULAR HEMOGLOBIN 30.6 PG (27.0-31.0); MEAN CORPUSCULAR VOLUME 90 FL (80-99); MEAN PLATELET VOLUME 9.1 FL (6.5-10.1); PLATELET COUNT 129 K/UL (150-450); RED BLOOD COUNT 4.92 M/UL (4.70-6.10); RED CELL DISTRIBUTION WIDTH 11.4 % (11.6-14.8); WHITE BLOOD COUNT 3.2 K/UL (4.8-10.8)
[2016-10-19 07:48] LABS: ALANINE AMINOTRANSFERASE 43 U/L (3-41); ANION GAP 15 (5-15); ASPARTATE AMINO TRANSFERASE 60 U/L (5-40); CALCIUM 7.6 mg/dL (8.6-10.2); CARBON DIOXIDE 23 mEQ/L (20-30); CHLORIDE 97 mEQ/L (98-107); CREATININE 0.9 mg/dL (0.7-1.2); GLOMERULAR FILTRATION RATE > 60 mL/min (>60); HEMOLYSIS 7; POTASSIUM 3.4 mEQ/L (3.4-4.9); SODIUM 135 mEQ/L (135-145); TOTAL PROTEIN 5.2 g/dL (6.6-8.7)
--- NOTE | 2016-10-19 08:41 | Cardiology Report ---
APPROVED REPORT EXAM: Two-dimensional and M-mode echocardiogram with Doppler and color Doppler. INDICATION SOB M-Mode DIMENSIONS Left Atrium (MM)2.1 (1.6-4.0cm) Aortic Root2.4 (2.0-3.7cm) Aortic Cusp Exc.1.5 (1.5-2.0cm) Technically difficult study due to poor acoustic windows.poor valvular definition M-mode measurements not obtainable due to cardiac structure. Normal left ventricular chamber size, systolic function and wall motion. Left ventricular ejection fraction estimated to be 60-65 %. Mild left ventricular hypertrophy. No evidence of pericardial fat or effusion. All other cardiac chamber sizes are within normal limits. Focal aortic valve sclerosis with adequate cusp excursion Thickened mitral valve leaflets with normal excursion. Mitral annulus and aortic root calcification. Pulmonic valve not well visualized. Normal tricuspid valve structure. IVC is normal in size with physiologic collapse. A color flow and spectral Doppler study was performed and revealed: No aortic regurgitation. No mitral regurgitation. Left ventricular diastolic dysfunction grade 1. No tricuspid regurgitation. Tricuspid systolic velocities suggests peak right ventricular systolic pressure of 16 mmHg
[2016-10-19 08:46] VITALS: BP 108/66
[2016-10-19] MEDS: Enoxaparin 30mg Inj SUBQ SCH ×2 (08:48→21:08)
[2016-10-19 09:48] LABS: BAND NEUTROPHILS % (MANUAL) 0 % (0-8); BASOPHILS % (MANUAL) 0 % (0-2); EOSINOPHILS % (MANUAL) 3 % (0-3); LYMPHOCYTES % (MANUAL) 46 % (20-45); NEUTROPHILS % (MANUAL) 39 % (45-75); PLATELET ESTIMATE DECREASED; PLATELET MORPHOLOGY NORMAL; TOTAL CELLS COUNTED 100
--- NOTE | 2016-10-19 12:24 | Diagnostic Imaging Report ---
Indication: COUGH Technique: One view of the chest Comparison: 10/17/2016 Findings: Mild elevation left hemidiaphragm persists. There is minimal left basilar atelectasis. Lungs and pleural spaces are otherwise clear. Previously demonstrated prominent interstitial markings are not evident currently. Uncertain as whether this is related to technical differences or reflects actual improvement Impression: Minimal left basilar atelectasis. No acute process otherwise Previously demonstrated interstitial disease is no longer evident. Uncertain as to whether this represents actual clearing or is related to improved technical factors on the current study
[2016-10-19 12:40] VITALS: BP 115/70
--- NOTE | 2016-10-19 12:41 | Diagnostic Imaging Report ---
Indications: 71-year-old male with cough and elevated d-dimer Technique: IV administration 5.5 mCi 99m technetium macroaggregated albumin. Images obtained over the lungs in multiple projections. Previously, patient inhaled 40 mCi aerosolized 99M technetium DTPA. Images obtained over the lungs in multiple projections Comparison: Reference made to chest radiograph 10/19/2016 Findings: There is slight heterogeneity to tracer distribution on both the perfusion and ventilation images, but no focal segmental or subsegmental perfusion defects or evidence of ventilation/perfusion mismatch. Impression: Findings deemed low probability for pulmonary embolus
--- NOTE | 2016-10-19 13:03 | Infectious Diseases Prog Note ---
Assessment/Plan Assessment/Plan A) 1) possible sepsis, fevers, leukopenia, sirs - clinically better 2) possible cap, uri/bronchitis, ? viral syndrome, ? uti - less sob and congested 3) mild increase in LFT's and TB, no abdominal pain 4) s/p left eye cataracts, pmh o/w negative 5) mar noted, notes and records noted, sh-negative, fh-nc 6) d/w RN P) 1) rocephin, flagyl, vancomycin for now 2) check us, labs, check v/q scan, check bc 3) orders entered and noted 4) continue treatment per primary and consultants 5) d/w Dr. Christian 6) d/w Dr. Wagner Subjective Constitutional: Reports: fatigue, Denies: fever HEENT: Reports: congestion - less Respiratory: Reports: shortness of breath - less Cardiovascular: Denies: chest pain Gastrointestinal/Abdominal: Denies: nausea, vomiting Skin: Denies: rash Allergies: Coded Allergies: No Known Allergies (Unverified , 10/06/16) Objective Vital Signs Last 24 Hour Vital Signs Date Time Temp Pulse Resp B/P Pulse Ox O2 Delivery O2 Flow Rate FiO2 10/19/16 12:40 98.0 88 18 115/70 98 Room Air 10/19/16 12:00 72 10/19/16 09:10 85 10/19/16 09:05 81 10/19/16 09:00 78 10/19/16 08:46 98.1 86 18 108/66 97 Room Air 10/19/16 08:00 86 10/19/16 04:00 97.8 97 20 120/65 94 Room Air 10/19/16 04:00 97 10/19/16 00:00 104 10/19/16 00:00 98.4 101 20 132/76 96 Room Air 10/18/16 21:00 87 96 103 10/18/16 20:00 104 10/18/16 20:00 99.1 100 20 125/64 93 Nasal Cannula 10/18/16 16:00 110 10/18/16 15:17 98.2 112 20 132/66 92 Room Air Height (Feet): 5 Height (Inches): 8.00 Weight (Pounds): 185 General Appearance: no acute distress HEENT: normocephalic, atraumatic, anicteric, mucous membranes moist, PERRL Respiratory/Chest: lungs clear, normal breath sounds, no respiratory distress, no accessory muscle use Cardiovascular: normal rate, regular rhythm, no gallop/murmur Abdomen: normal bowel sounds, soft, non tender, no organomegaly, non distended Microbiology Date/Time Source Procedure Growth Status 10/19/16 10:30 Nasal Nares Influenza Types A,B Antigen (ROEL) - Final Complete 10/17/16 15:30 Urine,Clean Catch Urine Culture - Preliminary Gram Positive Cocci Resulted Laboratory Tests Test 10/18/16 17:30 10/19/16 06:30 10/19/16 12:42 D-Dimer 41671 ng/mL (<500) H Troponin I < 0.30 ng/mL (<=0.30) White Blood Count 3.2 K/UL (4.8-10.8) L Red Blood Count 4.92 M/UL (4.70-6.10) Hemoglobin 15.1 G/DL (14.2-18.0) Hematocrit 44.3 % (42.0-52.0) Mean Corpuscular Volume 90 FL (80-99) Mean Corpuscular Hemoglobin 30.6 PG (27.0-31.0) Mean Corpuscular Hemoglobin Concent 34.0 G/DL (32.0-36.0) Red Cell Distribution Width 11.4 % (11.6-14.8) L Platelet Count 129 K/UL (150-450) L Mean Platelet Volume 9.1 FL (6.5-10.1) Neutrophils (%) (Auto) % (45.0-75.0) Lymphocytes (%) (Auto) % (20.0-45.0) Monocytes (%) (Auto) % (1.0-10.0) Eosinophils (%) (Auto) % (0.0-3.0) Basophils (%) (Auto) % (0.0-2.0) Differential Total Cells Counted 100 Neutrophils % (Manual) 39 % (45-75) L Lymphocytes % (Manual) 46 % (20-45) H Monocytes % (Manual) 12 % (1-10) H Eosinophils % (Manual) 3 % (0-3) Basophils % (Manual) 0 % (0-2) Band Neutrophils 0 % (0-8) Platelet Estimate Decreased L Platelet Morphology Normal Red Blood Cell Morphology Normal Sodium Level 135 mEQ/L (135-145) Potassium Level 3.4 mEQ/L (3.4-4.9) Chloride Level 97 mEQ/L (98-107) L Carbon Dioxide Level 23 mEQ/L (20-30) Anion Gap 15 (5-15) Blood Urea Nitrogen 16 mg/dL (7-23) Creatinine 0.9 mg/dL (0.7-1.2) Estimat Glomerular Filtration Rate > 60 mL/min (>60) Glucose Level 165 mg/dL (74-106) H Calcium Level 7.6 mg/dL (8.6-10.2) L Total Bilirubin 0.6 mg/dL (0.0-1.2) Aspartate Amino Transf (AST/SGOT) 60 U/L (5-40) H Alanine Aminotransferase (ALT/SGPT) 43 U/L (3-41) H Alkaline Phosphatase 39 U/L (40-129) L Total Protein 5.2 g/dL (6.6-8.7) L Albumin 2.6 g/dL (3.5-5.2) L Globulin 2.6 g/dL Albumin/Globulin Ratio 1.0 (1.0-2.7) Vancomycin Level Trough Pending Current Medications Medications (Trade) Dose Ordered Sig/Nixon Route PRN Reason Start Time Stop Time Status Last Admin Dose Admin Acetaminophen 500 mg 500 mg Q4H PRN ORAL Prn Headache/Temp > 101 10/17/16 22:45 11/16/16 22:44 Ceftriaxone Sodium 1 gm/ Dextrose 55 ml @ 110 mls/hr Q24H IVPB 10/18/16 15:00 10/25/16 14:59 10/18/16 16:45 Cetylpyridinium Chloride (Cepacol) 1 lozenge Q2H PRN KARIN For Cough/sore throat 10/18/16 16:00 11/17/16 15:59 Diclofenac Sodium 1 drop 1 drop EVERY 4 HOURS BOTH EYES 10/18/16 21:00 11/17/16 20:59 10/19/16 12:24 Enoxaparin Sodium 30 mg 30 mg EVERY 12 HOURS SUBQ 10/18/16 09:00 11/17/16 08:59 10/19/16 08:48 Gatifloxacin (Zymaxid) 1 drop EVERY 2 HOURS BOTH EYES 10/18/16 18:00 10/20/16 17:59 10/19/16 12:25 Metronidazole (Flagyl) 100 ml @ 100 mls/hr Q8HR IVPB 10/18/16 22:00 10/25/16 21:59 10/19/16 06:00 Ondansetron HCl (Zofran) 4 mg Q4H PRN IVP Nausea & Vomiting 10/17/16 22:45 11/16/16 22:44 Prednisolone Acetate (Pred Forte) 1 drop EVERY 2 HOURS BOTH EYES 10/18/16 18:00 11/17/16 17:59 10/19/16 12:25 Sodium Chloride (Sodium Chloride 1000ml bag) 1,000 ml @ 100 mls/hr Q10H IV 10/18/16 19:00 11/17/16 18:59 10/19/16 06:00 Vancomycin HCl (Vanco rx to dose) 1 ea DAILY PRN MISC Per rx protocol 10/18/16 01:30 11/17/16 01:29 Vancomycin HCl/ Dextrose (Vancomycin/D5W) 275 ml @ 183.708 mls/hr Q12H IVPB 10/18/16 01:30 10/23/16 01:29 10/19/16 01:15 PORTER BADILLO Oct 19, 2016 13:03
--- NOTE | 2016-10-19 13:28 | General Progress Note ---
Subjective Constitutional: Reports: weakness HEENT: Reports: no symptoms Cardiovascular: Reports: palpitations Respiratory: Reports: cough Gastrointestinal/Abdominal: Reports: no symptoms Genitourinary: Reports: no symptoms Neurologic/Psychiatric: Reports: no symptoms Endocrine: Reports: no symptoms Hematologic/Lymphatic: Reports: no symptoms Allergies: Coded Allergies: No Known Allergies (Unverified , 10/06/16) Objective Last 24 Hour Vital Signs Date Time Temp Pulse Resp B/P Pulse Ox O2 Delivery O2 Flow Rate FiO2 10/19/16 12:40 98.0 88 18 115/70 98 Room Air 10/19/16 12:00 72 10/19/16 09:10 85 10/19/16 09:05 81 10/19/16 09:00 78 10/19/16 08:46 98.1 86 18 108/66 97 Room Air 10/19/16 08:00 86 10/19/16 04:00 97.8 97 20 120/65 94 Room Air 10/19/16 04:00 97 10/19/16 00:00 104 10/19/16 00:00 98.4 101 20 132/76 96 Room Air 10/18/16 21:00 87 96 103 10/18/16 20:00 104 10/18/16 20:00 99.1 100 20 125/64 93 Nasal Cannula 10/18/16 16:00 110 10/18/16 15:17 98.2 112 20 132/66 92 Room Air Intake and Output 10/18/16 10/19/16 19:00 07:00 Intake Total 1197.416 ml 1246.0 ml Balance 1197.416 ml 1246.0 ml Intake Oral 720 ml IV Total 477.416 ml 1246.0 ml # Voids 4 4 # Bowel Movements 1 1 Laboratory Tests 10/18/16 17:30: D-Dimer [id number], Troponin I < 0.30 10/19/16 06:30: White Blood Count 3.2L, Red Blood Count 4.92, Hemoglobin 15.1, Hematocrit 44.3, Mean Corpuscular Volume 90, Mean Corpuscular Hemoglobin 30.6, Mean Corpuscular Hemoglobin Concent 34.0, Red Cell Distribution Width 11.4L, Platelet Count 129L , Mean Platelet Volume 9.1, Neutrophils (%) (Auto) , Lymphocytes (%) (Auto) , Monocytes (%) (Auto) , Eosinophils (%) (Auto) , Basophils (%) (Auto) , Differential Total Cells Counted 100, Neutrophils % (Manual) 39L, Lymphocytes % (Manual) 46H, Monocytes % (Manual) 12H, Eosinophils % (Manual) 3, Basophils % ( Manual) 0, Band Neutrophils 0, Platelet Estimate DecreasedL, Platelet Morphology Normal, Red Blood Cell Morphology Normal, Sodium Level 135, Potassium Level 3.4, Chloride Level 97L, Carbon Dioxide Level 23, Anion Gap 15, Blood Urea Nitrogen 16, Creatinine 0.9, Estimat Glomerular Filtration Rate > 60 , Glucose Level 165H, Calcium Level 7.6L, Total Bilirubin 0.6, Aspartate Amino Transf (AST/SGOT) 60H, Alanine Aminotransferase (ALT/SGPT) 43H, Alkaline Phosphatase 39L, Total Protein 5.2L, Albumin 2.6L, Globulin 2.6, Albumin/ Globulin Ratio 1.0 10/19/16 12:42: Vancomycin Level Trough 14.6H Height (Feet): 5 Height (Inches): 8.00 Weight (Pounds): 185 GIANFRANCO THOMPSON Oct 19, 2016 13:28
--- NOTE | 2016-10-19 13:32 | General Progress Note ---
Subjective Allergies: Coded Allergies: No Known Allergies (Unverified , 10/06/16) Objective Last 24 Hour Vital Signs Date Time Temp Pulse Resp B/P Pulse Ox O2 Delivery O2 Flow Rate FiO2 10/19/16 12:40 98.0 88 18 115/70 98 Room Air 10/19/16 12:00 72 10/19/16 09:10 85 10/19/16 09:05 81 10/19/16 09:00 78 10/19/16 08:46 98.1 86 18 108/66 97 Room Air 10/19/16 08:00 86 10/19/16 04:00 97.8 97 20 120/65 94 Room Air 10/19/16 04:00 97 10/19/16 00:00 104 10/19/16 00:00 98.4 101 20 132/76 96 Room Air 10/18/16 21:00 87 96 103 10/18/16 20:00 104 10/18/16 20:00 99.1 100 20 125/64 93 Nasal Cannula 10/18/16 16:00 110 10/18/16 15:17 98.2 112 20 132/66 92 Room Air Intake and Output 10/18/16 10/19/16 19:00 07:00 Intake Total 1197.416 ml 1246.0 ml Balance 1197.416 ml 1246.0 ml Intake Oral 720 ml IV Total 477.416 ml 1246.0 ml # Voids 4 4 # Bowel Movements 1 1 Laboratory Tests 10/18/16 17:30: D-Dimer [id number], Troponin I < 0.30 10/19/16 06:30: White Blood Count 3.2L, Red Blood Count 4.92, Hemoglobin 15.1, Hematocrit 44.3, Mean Corpuscular Volume 90, Mean Corpuscular Hemoglobin 30.6, Mean Corpuscular Hemoglobin Concent 34.0, Red Cell Distribution Width 11.4L, Platelet Count 129L , Mean Platelet Volume 9.1, Neutrophils (%) (Auto) , Lymphocytes (%) (Auto) , Monocytes (%) (Auto) , Eosinophils (%) (Auto) , Basophils (%) (Auto) , Differential Total Cells Counted 100, Neutrophils % (Manual) 39L, Lymphocytes % (Manual) 46H, Monocytes % (Manual) 12H, Eosinophils % (Manual) 3, Basophils % ( Manual) 0, Band Neutrophils 0, Platelet Estimate DecreasedL, Platelet Morphology Normal, Red Blood Cell Morphology Normal, Sodium Level 135, Potassium Level 3.4, Chloride Level 97L, Carbon Dioxide Level 23, Anion Gap 15, Blood Urea Nitrogen 16, Creatinine 0.9, Estimat Glomerular Filtration Rate > 60 , Glucose Level 165H, Calcium Level 7.6L, Total Bilirubin 0.6, Aspartate Amino Transf (AST/SGOT) 60H, Alanine Aminotransferase (ALT/SGPT) 43H, Alkaline Phosphatase 39L, Total Protein 5.2L, Albumin 2.6L, Globulin 2.6, Albumin/ Globulin Ratio 1.0 10/19/16 12:42: Vancomycin Level Trough 14.6H Height (Feet): 5 Height (Inches): 8.00 Weight (Pounds): 185 General Appearance: no apparent distress, alert, mild distress EENT: normal ENT inspection Neck: non-tender, supple Cardiovascular: tachycardia Respiratory/Chest: lungs clear Abdomen: normal bowel sounds Pelvis: normal external exam Genitourinary/Rectal: normal genital exam Extremities: normal range of motion Edema: no edema noted Arm (L) Neurologic: corral boss II-XII grossly normal Skin: normal pigmentation, no diaphoresis Lymphatic: normal anterior cervical (L), normal anterior cervical (R), normal axillary (L), normal axillary (R), normal inguinal (L), normal inguinal (R), normal other, normal posterior cervical (L), normal posterior cervical (R), normal submandibular (L), normal submandibular (R), normal supraclavicular (L), normal supraclavicular (R) GIANFRANCO THOMPSON Oct 19, 2016 13:32
[2016-10-19] MEDS ORDERED: Tubing IV Secondary IV ONE (14:18)
[2016-10-19 15:36] VITALS: BP 136/76
--- NOTE | 2016-10-19 16:54 | Diagnostic Imaging Report ---
Indication: Abdominal pain, elevated renal function test liver function tests Technique: Sanford-scale and duplex images of the upper abdomen were obtained Comparison: None Findings: Gallbladder demonstrates gallstones. No gallbladder wall thickening. No pericholecystic fluid. Sonographic Ordaz's sign is negative. Common bile duct measures 6 mm in diameter. No intrahepatic biliary ductal dilatation. Liver demonstrates diffusely increased echogenicity, consistent with diffuse hepatocellular disease, most likely fatty change. Area of focal sparing is seen in the usual location adjacent the gallbladder fossa Portal vein and hepatic veins are patent. Pancreas is unremarkable. Spleen is unremarkable. Left kidney measures 11.1 cm in length. Right kidney measures 9.2 cm length. Both kidneys demonstrate normal echogenicity. There is no hydronephrosis. Left kidney demonstrates a 2.3 cm lower pole cyst. It also demonstrates a 16 mm upper pole cyst. Non-aneurysmal abdominal aorta . Impression: Cholelithiasis. Negative for dilated ducts Liver demonstrates diffusely increased echogenicity, consistent with diffuse hepatocellular disease, most likely fatty change . Note focal sparing in the usual location
[2016-10-19] MEDS: cefTRIAXone 1 GM in D5W 55 ML IVPB SCH (16:58)
--- NOTE | 2016-10-19 17:30 | Cardiology Progress Note ---
Assessment/Plan Assessment/Plan 1. Probable sinus tachycardia related to fever infection and volume depletion 2. Fevers and chills, questionable sepsis. 3. Pulmonary symptoms, questionable pulmonary infection. 4. Diarrhea of significant degree. 5. Cataract extraction. 6. Leukopenia and thrombocytopenia. no sx to suggest acs nor chf ivf for diarrhea id on borad ekg reviewed he feels much improved post hydration and abx duplex neg v/q low probability ok to dc tele agree with dc planning when ok with id Subjective Cardiovascular: Denies: chest pain, irregular heart rate, lightheadedness, palpitations Respiratory: Denies: SOB with excertion, shortness of breath Gastrointestinal/Abdominal: Denies: abdominal pain Genitourinary: Denies: burning Objective Last 24 Hour Vital Signs Date Time Temp Pulse Resp B/P Pulse Ox O2 Delivery O2 Flow Rate FiO2 10/19/16 16:00 75 10/19/16 15:36 97.7 83 20 136/76 97 Room Air 10/19/16 12:40 98.0 88 18 115/70 98 Room Air 10/19/16 12:00 72 10/19/16 09:10 85 10/19/16 09:05 81 10/19/16 09:00 78 10/19/16 08:46 98.1 86 18 108/66 97 Room Air 10/19/16 08:00 86 10/19/16 04:00 97.8 97 20 120/65 94 Room Air 10/19/16 04:00 97 10/19/16 00:00 104 10/19/16 00:00 98.4 101 20 132/76 96 Room Air 10/18/16 21:00 87 96 103 10/18/16 20:00 104 10/18/16 20:00 99.1 100 20 125/64 93 Nasal Cannula General Appearance: no apparent distress, alert Neck: supple Cardiovascular: normal rate, regular rhythm Respiratory/Chest: lungs clear, normal breath sounds Abdomen: normal bowel sounds, non tender, soft Extremities: non-tender Intake and Output 10/18/16 10/19/16 19:00 07:00 Intake Total 1197.416 ml 1246.0 ml Balance 1197.416 ml 1246.0 ml Intake Oral 720 ml IV Total 477.416 ml 1246.0 ml # Voids 4 4 # Bowel Movements 1 1 Laboratory Tests Test 10/18/16 17:30 4/27/17 06:30 10/19/16 12:42 D-Dimer 98965 ng/mL (<500) H Troponin I < 0.30 ng/mL (<=0.30) White Blood Count 3.2 K/UL (4.8-10.8) L Red Blood Count 4.92 M/UL (4.70-6.10) Hemoglobin 15.1 G/DL (14.2-18.0) Hematocrit 44.3 % (42.0-52.0) Mean Corpuscular Volume 90 FL (80-99) Mean Corpuscular Hemoglobin 30.6 PG (27.0-31.0) Mean Corpuscular Hemoglobin Concent 34.0 G/DL (32.0-36.0) Red Cell Distribution Width 11.4 % (11.6-14.8) L Platelet Count 129 K/UL (150-450) L Mean Platelet Volume 9.1 FL (6.5-10.1) Neutrophils (%) (Auto) % (45.0-75.0) Lymphocytes (%) (Auto) % (20.0-45.0) Monocytes (%) (Auto) % (1.0-10.0) Eosinophils (%) (Auto) % (0.0-3.0) Basophils (%) (Auto) % (0.0-2.0) Differential Total Cells Counted 100 Neutrophils % (Manual) 39 % (45-75) L Lymphocytes % (Manual) 46 % (20-45) H Monocytes % (Manual) 12 % (1-10) H Eosinophils % (Manual) 3 % (0-3) Basophils % (Manual) 0 % (0-2) Band Neutrophils 0 % (0-8) Platelet Estimate Decreased L Platelet Morphology Normal Red Blood Cell Morphology Normal Sodium Level 135 mEQ/L (135-145) Potassium Level 3.4 mEQ/L (3.4-4.9) Chloride Level 97 mEQ/L (98-107) L Carbon Dioxide Level 23 mEQ/L (20-30) Anion Gap 15 (5-15) Blood Urea Nitrogen 16 mg/dL (7-23) Creatinine 0.9 mg/dL (0.7-1.2) Estimat Glomerular Filtration Rate > 60 mL/min (>60) Glucose Level 165 mg/dL (74-106) H Calcium Level 7.6 mg/dL (8.6-10.2) L Total Bilirubin 0.6 mg/dL (0.0-1.2) Aspartate Amino Transf (AST/SGOT) 60 U/L (5-40) H Alanine Aminotransferase (ALT/SGPT) 43 U/L (3-41) H Alkaline Phosphatase 39 U/L (40-129) L Total Protein 5.2 g/dL (6.6-8.7) L Albumin 2.6 g/dL (3.5-5.2) L Globulin 2.6 g/dL Albumin/Globulin Ratio 1.0 (1.0-2.7) Vancomycin Level Trough 14.6 ug/mL (5.0-12.0) H Microbiology Date/Time Source Procedure Growth Status 10/19/16 10:30 Nasal Nares Influenza Types A,B Antigen (ROEL) - Final Complete 10/17/16 15:30 Urine,Clean Catch Urine Culture - Preliminary Gram Positive Cocci Resulted SPENCER BARKER Oct 19, 2016 17:30
--- NOTE | 2016-10-19 18:17 | Consultation ---
DATE OF CONSULTATION: 10/19/2016 HEMATOLOGY/ONCOLOGY CONSULTATION REFERRING PHYSICIAN: Carole Christian M.D. REASON FOR CONSULTATION: Leukopenia with mild thrombocytopenia. HISTORY OF PRESENT ILLNESS: The patient is a very pleasant 71-year-old gentleman who was in excellent state of health. The patient has undergone a recent cataract surgery three days prior to hospitalization. The day after the cataract surgery, the patient had significant high temperature, feeling dizzy, was noted to have temperature of 104 degrees, brought into the emergency room, was noted to be significantly leukopenic. He was started on broad-spectrum antibiotics. Additionally, the patient has been followed up by Infectious Disease. Chest x-ray demonstrates possible infiltrates, possible pneumonia versus fever, neutropenia, and pneumonia. PAST MEDICAL HISTORY: Cataract, otherwise negative. PAST SURGICAL HISTORY: Status post bilateral cataract surgery. MEDICATIONS: Per link. SOCIAL HISTORY: No tobacco, alcohol, or drugs. FAMILY HISTORY: No cancers that the patient recalls. No exposure to tuberculosis. No history of cancers. REVIEW OF SYSTEMS: General: The patient denies headache, vision change, or hearing loss. In general, the patient has significant night sweats with drenching for the past seven to eight days. No significant weight loss. Pulmonary: The patient does complain of some shortness of breath and cough. Cardiac: The patient has no chest pain currently. Gastrointestinal: The patient has poor oral intake. No nausea. Musculoskeletal: The patient has back pain. Skin: The patient has jaundice. PHYSICAL EXAMINATION: GENERAL: The patient is a well developed gentleman, in no acute distress. VITAL SIGNS: Temperature upon admission was 104 degrees, currently at 99 degrees, pulse of 100, blood pressure . HEAD AND NECK: Sclerae anicteric. CHEST: Few rhonchi bilaterally. CARDIAC: Regular rhythm. S1 and S2. ABDOMEN: Soft, nontender, and nondistended. EXTREMITIES: There is no trace edema. LABORATORY AND DIAGNOSTIC DATA: Duplex just been done negative. Chest x-ray has been noted. 1.3. White count as of yesterday was 3.6, which has improved from 1. Hemoglobin on admission was 18.4 with a platelet count 112,000, white count 1. ASSESSMENT AND PLAN: 1. Leukopenia. The patient had full leukopenia evaluation. review needs to be done. Currently, this is probably secondary to acute viral infection, is not clear. The patient for underlying malignancy especially in view of significant high fever, i.e, leukemia in specific. if there is no evidence of needs to be done. B12, folate will be evaluated. The patient is to be placed on influenza precaution and respiratory precaution. I have asked the nurse to do influenza swab. 2. Thrombocytopenia, questionable etiology. Hold off on bone marrow biopsy at this point in time. 3. Night sweats should be followed up. The patient is currently being evaluated by high fevers, viral versus bacterial and some broad-spectrum antibiotics. After extensive discussion with the patient's family at this point in time, hematologic evaluation will be done. I have requested the patient to follow in my office. If no active hematologic issues, there is no need for me to continue to follow up in the hospital, however, this patient likely is improving. Please contact me with any questions. The patient does have my personal cellphone as well as my office number to follow as an outpatient discharge, to follow up on his laboratory that has been drawn here in the hospital. Raymond Wagner M.D. DR: DEBBY JOB#: [id number] CC:
[2016-10-19 20:10] VITALS: BP 119/65
[2016-10-20] MEDS: Gatifloxacin Opth Solution 0.5% BOTH EYES SCH ×5 (00:02→08:00)
[2016-10-20] MEDS: Pred Forte 1% Opth Susp 1ml BOTH EYES SCH ×5 (00:02→08:00)
[2016-10-20 00:23] VITALS: BP 118/74
[2016-10-20] MEDS: Diclofenac Sod 0.1% Op Soln BOTH EYES SCH ×3 (01:02→09:00)
[2016-10-20 03:59] VITALS: BP 134/77
[2016-10-20] MEDS ORDERED: Vancomycin 1gm in D5W 275ml IVPB SCH (04:00)
[2016-10-20] MEDS: metroNIDAZOLE 500mg 100 ML IVPB SCH (06:04)
[2016-10-20 07:39] LABS: BASOPHILS % (AUTO) 0.8 % (0.0-2.0); EOSINOPHILS % (AUTO) 2.8 % (0.0-3.0); MEAN CORPUSCULAR HEMOGLOBIN 30.4 PG (27.0-31.0); MEAN CORPUSCULAR HGB CONC 33.3 G/DL (32.0-36.0); MEAN CORPUSCULAR VOLUME 91 FL (80-99); MEAN PLATELET VOLUME 8.9 FL (6.5-10.1); MONOCYTES % (AUTO) 15.5 % (1.0-10.0); PLATELET COUNT 159 K/UL (150-450); RED BLOOD COUNT 4.79 M/UL (4.70-6.10); WHITE BLOOD COUNT 4.5 K/UL (4.8-10.8)
[2016-10-20 07:43] LABS: ANION GAP 13 (5-15); CALCIUM 7.9 mg/dL (8.6-10.2); CARBON DIOXIDE 24 mEQ/L (20-30); CHLORIDE 100 mEQ/L (98-107); CREATININE 0.8 mg/dL (0.7-1.2); GLOMERULAR FILTRATION RATE > 60 mL/min (>60); HEMOLYSIS 7; SODIUM 137 mEQ/L (135-145)
[2016-10-20 08:00] VITALS: BP 104/80
[2016-10-20] MEDS: Enoxaparin 30mg Inj SUBQ SCH (09:00)
--- NOTE | 2016-10-20 09:00 | General Progress Note ---
Subjective Constitutional: Reports: no symptoms HEENT: Reports: no symptoms Cardiovascular: Reports: no symptoms Respiratory: Reports: cough Gastrointestinal/Abdominal: Reports: no symptoms Genitourinary: Reports: no symptoms Neurologic/Psychiatric: Reports: no symptoms Endocrine: Reports: no symptoms Hematologic/Lymphatic: Reports: no symptoms Allergies: Coded Allergies: No Known Allergies (Unverified , 10/06/16) Objective Last 24 Hour Vital Signs Date Time Temp Pulse Resp B/P Pulse Ox O2 Delivery O2 Flow Rate FiO2 10/20/16 08:00 97.5 73 18 104/80 96 Room Air 10/20/16 04:00 64 10/20/16 03:59 98.8 78 20 134/77 99 Room Air 10/20/16 00:23 98.6 72 19 118/74 98 Room Air 10/20/16 00:00 69 10/19/16 20:11 77 80 78 10/19/16 20:10 97.7 77 20 119/65 96 Room Air 10/19/16 20:00 80 10/19/16 16:00 75 10/19/16 15:36 97.7 83 20 136/76 97 Room Air 10/19/16 12:40 98.0 88 18 115/70 98 Room Air 10/19/16 12:00 72 10/19/16 09:10 85 10/19/16 09:05 81 10/19/16 09:00 78 Intake and Output 10/19/16 10/20/16 19:00 07:00 Intake Total 1355.000 ml 1025.0 ml Balance 1355.000 ml 1025.0 ml Intake Oral 120 ml IV Total 1235.000 ml 1025.0 ml # Voids 2 Laboratory Tests 10/19/16 12:42: Vancomycin Level Trough 14.6H 10/20/16 06:35: White Blood Count 4.5L, Red Blood Count 4.79, Hemoglobin 14.6, Hematocrit 43.6, Mean Corpuscular Volume 91, Mean Corpuscular Hemoglobin 30.4, Mean Corpuscular Hemoglobin Concent 33.3, Red Cell Distribution Width 12.0, Platelet Count 159, Mean Platelet Volume 8.9, Neutrophils (%) (Auto) 37.0L, Lymphocytes (%) (Auto) 44.0, Monocytes (%) (Auto) 15.5H, Eosinophils (%) (Auto) 2.8, Basophils (%) ( Auto) 0.8, Sodium Level 137, Potassium Level 4.0, Chloride Level 100, Carbon Dioxide Level 24, Anion Gap 13, Blood Urea Nitrogen 14, Creatinine 0.8, Estimat Glomerular Filtration Rate > 60, Glucose Level 159H, Calcium Level 7.9L Height (Feet): 5 Height (Inches): 8.00 Weight (Pounds): 185 GIANFRANCO THOMPSON Oct 20, 2016 09:00
--- NOTE | 2016-10-20 09:07 | General Progress Note ---
Subjective Allergies: Coded Allergies: No Known Allergies (Unverified , 10/06/16) Objective Last 24 Hour Vital Signs Date Time Temp Pulse Resp B/P Pulse Ox O2 Delivery O2 Flow Rate FiO2 10/20/16 08:00 97.5 73 18 104/80 96 Room Air 10/20/16 04:00 64 10/20/16 03:59 98.8 78 20 134/77 99 Room Air 10/20/16 00:23 98.6 72 19 118/74 98 Room Air 10/20/16 00:00 69 10/19/16 20:11 77 80 78 10/19/16 20:10 97.7 77 20 119/65 96 Room Air 10/19/16 20:00 80 10/19/16 16:00 75 10/19/16 15:36 97.7 83 20 136/76 97 Room Air 10/19/16 12:40 98.0 88 18 115/70 98 Room Air 10/19/16 12:00 72 10/19/16 09:10 85 10/19/16 09:05 81 Intake and Output 10/19/16 10/20/16 19:00 07:00 Intake Total 1355.000 ml 1025.0 ml Balance 1355.000 ml 1025.0 ml Intake Oral 120 ml IV Total 1235.000 ml 1025.0 ml # Voids 2 Laboratory Tests 10/19/16 12:42: Vancomycin Level Trough 14.6H 10/20/16 06:35: White Blood Count 4.5L, Red Blood Count 4.79, Hemoglobin 14.6, Hematocrit 43.6, Mean Corpuscular Volume 91, Mean Corpuscular Hemoglobin 30.4, Mean Corpuscular Hemoglobin Concent 33.3, Red Cell Distribution Width 12.0, Platelet Count 159, Mean Platelet Volume 8.9, Neutrophils (%) (Auto) 37.0L, Lymphocytes (%) (Auto) 44.0, Monocytes (%) (Auto) 15.5H, Eosinophils (%) (Auto) 2.8, Basophils (%) ( Auto) 0.8, Sodium Level 137, Potassium Level 4.0, Chloride Level 100, Carbon Dioxide Level 24, Anion Gap 13, Blood Urea Nitrogen 14, Creatinine 0.8, Estimat Glomerular Filtration Rate > 60, Glucose Level 159H, Calcium Level 7.9L Height (Feet): 5 Height (Inches): 8.00 Weight (Pounds): 185 General Appearance: no apparent distress EENT: PERRL/EOMI Neck: supple Cardiovascular: normal peripheral pulses, regular rhythm Respiratory/Chest: lungs clear Abdomen: non tender, soft Pelvis: normal external exam Extremities: normal range of motion, non-tender Edema: no edema noted Arm (L), no edema noted Arm (R), no edema noted Leg (L), no edema noted Leg (R), no edema noted Pedal (L), no edema noted Pedal (R), no edema noted Generalized Neurologic: acid correction hand II-XII grossly normal Skin: normal pigmentation, other - VSS Lab cheked iscussed with Dr Bernard Valerio D/c home on Z pack and Os annette. GIANFRANCO THOMPSON Oct 20, 2016 09:07
[2016-10-20 09:37] LABS: OTHERS PATHOLOGIST COMMENT
--- NOTE | 2016-10-20 13:20 | Cardiology Report ---
APPROVED REPORT EKG Measurement Heart [id number] [place] [id number] Normal sinus rhythm Normal ECG
--- NOTE | 2016-10-20 13:24 | Cardiology Report ---
APPROVED REPORT EKG Measurement Heart [id number] [place] [id number] Sinus tachycardia Otherwise normal ECG
--- NOTE | 2016-10-20 17:27 | Diagnostic Imaging Report ---
APPROVED REPORT CPT Code: 88383 Present Symptoms Comments: Post Op R/O DVT Risk Factors Bed Rest BILATERAL: Imaging reveals a patent deep venous system bilaterally. There is no evidence of thrombus within the femoral, popliteal or tibial segments. The greater saphenous veins are also within normal limits. Doppler indicates normal spontaneous flow within these segments.
--- NOTE | 2016-10-20 22:48 | Progress Note ---
DATE: 10/20/2016 NOTE: "POOR AUDIO QUALITY" HEMATOLOGY/ONCOLOGY FOLLOWUP NOTE SUBJECTIVE: The patient feels much better. The patient . The patient any fevers. The patient Infectious Disease. Blood cultures have been negative. Influenza swab was negative as well. The patient's V/Q scan and duplex were negative. The patient has white count above 1000 on 10/17/2016 increased to 3.6 and 3.2 yesterday and 4.5 today on 10/20/2016. I had extensive discussion with the patient's son as well as the daughter yesterday. The patient . The patient's case has been briefly discussed with pathology and there was no evidence of blasts on the smear reviewed. Dr. Christian would like to have the patient discharged home with oral antibiotics apparently today. OBJECTIVE: VITAL SIGNS: The patient's respiratory rate 20, blood pressure 134/77, pulse oximetry 99% on room air, pulse 78, and temperature 98.8 with a T-max of 98.8. HEENT: Sclerae anicteric. CHEST: Clear to auscultation. CARDIAC: Regular rhythm. S1 and S2. ABDOMEN: Soft and nontender. No hepatosplenomegaly. EXTREMITIES: No cyanosis, clubbing, or edema. NEUROLOGIC: Nonfocal. LABORATORY DATA: As noted above. The patient 's white count did increase to 4.5 and platelet improved to 159,000 with a hemoglobin 14.6. ASSESSMENT AND PLAN: 1. Leukopenia with a white count of 1000 with 54% neutrophils on admission. Currently, we will improve white count 4.5. I had extensive discussion with there is no evidence of blasts noted on the smear. The patient does have some elevation of his monocytes today at 15.5%. I had extensive discussion with the patient the patient to present to office. The patient cytology on further evaluation. The patient understands the need for followup. 2. Fever, currently resolved Infectious Disease, Dr. Christian. 3. Both cataract surgery. 4. Erythrocytosis. On admission, the patient had a hemoglobin of 17.5 currently, down to 4.3. The patient most likely was very dehydrated. 5. Thrombocytopenia, improved. 6. Code status is Full Code. 7. Discharge plan per Dr. Christian. Raymond Wagner M.D. DR: Wilmer JOB#: [id number] CC:
--- NOTE | 2016-10-21 03:58 | Discharge Summary ---
DATE OF ADMISSION: 10/17/2016 DATE OF DISCHARGE: 10/20/2016 ADMISSION DIAGNOSES: 1. Vomiting. 2. Possible aspiration pneumonia. 3. Respiratory distress. 4. Benign prostatic hypertrophy. 5. Congestion post cataract surgery. 6. Leukopenia, unknown origin. DISCHARGE DIAGNOSES: 1. Leukopenia, resolved. 2. Viral syndrome. 3. Benign prostatic hypertrophy. 4. Status post left eye cataract surgery. 5. Cholelithiasis. 6. Gastroesophageal reflux disease. 7. Elevated liver function test. HOSPITAL COURSE: The patient is a 71-year-old male, who was seen in the outpatient department after the left eye cataract surgery done by Dr. Kumar Camargo. The patient developed chills, vomited twice and became hypotensive and tachycardic. O2 saturation dropped to the low 90s. The patient was transferred to emergency room where he was evaluated. His white count was 10,000, hemoglobin 18.4, hematocrit 55.4, blood normal except for the decrease of the platelet. Chemistry was negative for a mild troponin level normal, 19.03. Sodium was 130. Potassium 3.7. The glucose is 250. Creatinine 1.2. BUN 27. The patient was hydrated with intravenous fluids. He was seen by Dr. Faulkner, infection disease. He was started on vancomycin, Rocephin, and added Flagyl. The patient was also seen by Dr. Brady Auguste in cardiologic consultation. His heart rate slowly returned to its normal rate of 75, blood pressure was controlled and the patient was seen by b[facility] cutter, Dr. Raymond Wagner. We will follow his blood test in a month. On the day of discharge on 10/20/2016, the patient's white blood cells were 4,500, hemoglobin 14.6, hematocrit 43.6, and platelets 159,000. The culture was positive for cocci in amount of 10 [place] [id number]. Blood culture was negative. The patient is ambulating. The patient's calcium was low at 7.9 and 7.4 on admission. The patient will be discharged home to continue antibiotic Z-Bret was prescribed and Os-King 500 mg 3 times a day, prescription given. The patient is recommend to see the Hematology and follow his laboratory work. Prognosis is good. ACTIVITY: As tolerated. DIET: As tolerated. To avoid fatty and greasy foods. Carole Christian M.D. DR: RAINE JOB#: [id number] CC: MARCIO
--- NOTE | 2016-10-23 09:18 | History and Physical Report ---
DATE OF ADMISSION: 10/17/2016 REASON FOR ADMISSION: This 71-year-old male after cataract surgery on the left eye was transferred to postop. The patient developed chills, vomiting x2 and palpitation. The patient had EKG changes. He had blood pressure to 90s and O2 saturation of 90%. Acute response team was called. The patient was transferred to the emergency room where he was examined as well. The patient's troponin was negative. Laboratory work showed white blood cells is low 1.0, hemoglobin 18.4, and hematocrit 55. PAST MEDICAL HISTORY: Remarkable for benign prostatic hypertrophy and GERD. He had surgery on both eyes, cataract. MEDICATIONS: The patient takes no medication at home. SOCIAL HISTORY: He was a smoker in the past. Occasional alcohol. No history of myocardial infarction, chest pain or heart attack. No diabetes. No stroke. No hypertension. PHYSICAL EXAMINATION: GENERAL: Awake, alert and diaphoretic. HEENT: Head, normocephalic. Baldness. Eye after cataract surgery. Nose, clear. Mouth, dry and clear. Herpetic lesion on the lip. SKIN: No jaundice. No rashes except for herpetic lesions. NECK: No jugular venous distention. Carotids are +2. Trachea midline. CHEST: Mild kyphosis. LUNGS: No rales or rhonchi. No wheezing. HEART: Rate, sinus tachycardia. No murmur. No S3 or S4. ABDOMEN: Soft. No rebound. No palpable mass. EXTREMITIES: No edema. No varicose veins. No deformities. NEUROLOGIC: No asymmetry or tremor. No peripheral deficiency. IMPRESSION: 1. Leukopenia, cause to be determined. 2. Respiratory distress and hypotension. 3. Viral syndrome. 4. Status post left eye cataract surgery. 5. Benign prostatic hypertrophy. 6. . PLAN: Admit to monitored bed. Obtain Cardiology consultation. Follow up troponin level and EKG. Workup on leukopenia. Intravenous fluid. Await for cultures, urine, and blood. Obtain Infectious Disease consultation. The patient started on Rocephin 1 g daily intravenous and vancomycin 500 mg twice a day. Prognosis is guarded. Carole Christian M.D. DR: HARLEY JOB#: [id number] CC: MARCIO
--- NOTE | 2016-10-31 16:02 | Cardiology Report ---
APPROVED REPORT EKG Measurement Heart [id number] Sinus tachycardia Possible Left atrial enlargement Low voltage QRS Nonspecific ST abnormality Abnormal ECG
--- NOTE | 2016-11-08 23:07 | Physician Query ---
PLEASE COMPLETE THE QUESTION IN RED BEFORE SIGNING Dear Dr. GIANFRANCO THOMPSON Date: 11/08/16 Publicity Expert/CDS Name: YUMIKO SCHMITT C[facility] Exercise your independent professional judgment when responding to query. Question asked do not imply a particular answer is desired/expected Clinical Documentation States: H&P- 1.Leukopenia, cause to be determined. 2. Respiratory distress and hypotension. "Sepsis" documented in .....Cardiology: Dr Brady Auguste consultation: Fevers and chills, questionable sepsis. He has already been seen by Dr. Faulkner for initiation antibiotics that cause of his leukopenia and thrombocytopenia are yet to be determined, although consideration to acute infectious processes such as viral process is usually possible Dr. Faulkner consultation:The patient has possible sepsis. The patient has fevers of 104 degrees, systemic inflammatory response syndrome criteria with a heart rate of 100. Elevated respiratory rate and leukopenia. If the patient is aseptic, most likely source is respiratory, but he certainly has upper respiratory infection bronchitis, possibly community-acquired pneumonia and questionable underlying viral syndrome. Questionable UTI.Leukopenia, seems to have improved, possibly secondary to sepsis with bone marrow suppression. General variables [x] Fever (temp >38.3 degrees C or 100.4 degrees F) [] Hypothermia (temp<36 degrees C or 96.0 degrees F) [x] Heart rate > 90/min Inflammatory variables [x] Leukopenia (WBC count < 4000 L1) Hemodynamic variables [x] Arterial hypotension (SBP < 90 mm Hg, MAP < 70 mm Hg, or an SBP decrease > 40 mm Hg in adults or less than two sd below normal for age) Organ dysfunction variables [x] Thrombocytopenia (platelet count < 100,000 L1) Please specify if sepsis was a confirmed diagnosis? [] Yes [] No [] Clinically undeterminable If patient was not septic, what is the underlying cause to variables? GIANFRANCO THOMPSON M.D. [facility] & [facility]
== END 2016-10-20 09:10 | disposition home or self-care (01) | DRG 720 ==
LOC: EMR 17:05 → 2E 17:16 → EDBEDREQ 20:26
DX: A41.9 Sepsis, unspecified organism (principal); J18.9 Pneumonia, unspecified organism; D69.6 Thrombocytopenia, unspecified; E86.0 Dehydration; N39.0 Urinary tract infection, site not specified; D75.1 Secondary polycythemia; R19.7 Diarrhea, unspecified; R00.0 Tachycardia, unspecified; N40.0 Benign prostatic hyperplasia without lower urinary tract symptoms; K80.20 Calculus of gallbladder without cholecystitis without obstruction; R79.89 Other specified abnormal findings of blood chemistry; D72.819 Decreased white blood cell count, unspecified; Z98.42 Cataract extraction status, left eye; Z96.1 Presence of intraocular lens; J06.9 Acute upper respiratory infection, unspecified; Z87.891 Personal history of nicotine dependence; B34.9 Viral infection, unspecified; K21.9 Gastro-esophageal reflux disease without esophagitis
CPT/HCPCS: 36415; 71010; 76700; 78579; 78580; 80048; 80053; 80202; 81003; 82248; 82550; 82553; 83880; 84484; 85007; 85025; 85379; 85610; 85730; 86710; 87040; 87086; 87181; 93005; 93306; 93970; A9503

== ENCOUNTER → 2016-10-17 | Day surgery (SDC) | payer MEDICARE, MEDICAID ==
--- NOTE | 2016-10-13 12:28 | Pre-Procedure Note/Attestation ---
Pre-Procedure Note/Attestation Complete Prior to Procedure Planned Procedure: left Procedure Narrative: 1. CATARACT EXTRACTION WITH PHACO AND PC IOL IMPLANTATION, LEFT EYE. Indications for Procedure Pre-Operative Diagnosis: 1. CATARACT ,LEFT EYE Attestation I attest that I discussed the nature of the procedure; its benefits; risks and complications; and alternatives (and the risks and benefits of such alternatives ), prior to the procedure, with the patient (or the patient's legal major account representative). I attest that, if there was a reasonable possibility of needing a blood transfusion, the patient (or the patient's legal major account representative) was given the [facility] standardized written summary, pursuant to the William Rozina Blood Safety Act ([place] Health and Safety Code # 1645, as amended). I attest that I re-evaluated the patient just prior to the surgery and that there has been no change in the patient's H&P, except as documented below: LYNDA TIJERINA Oct 13, 2016 12:28
[~2016-10-17] VITALS: Ht 172.7 cm; Wt 83.9 kg
[2016-10-17] VITALS (18 sets, daily range): BP systolic 86–156; BP diastolic 51–88
[~2016-10-17] MED LIST changes: -Akten 3.5% 1ml Btl ONE; -Diclofenac Sod 0.1% Op Soln ONE; -Gatifloxacin Opth Solution 0.5% ONE; +Metoclopramide 10mg/2ml Inj IVP ONE; -NS Irrig 1000ml ONE; -Phenylephrine 10% Opth Soln 5ml ONE; -Sterile Water Irrig 1000ml IRRIG ONE; -Tropicamide 1% Opth Soln ONE
[2016-10-17] MEDS: Akten 3.5% 1ml Btl LEFT EYE SCH ×3 (06:56→07:16)
[2016-10-17] MEDS: Tropicamide 1% Opth Soln LEFT EYE SCH ×3 (06:56→07:16)
[2016-10-17] MEDS: Diclofenac Sod 0.1% Op Soln LEFT EYE SCH ×3 (06:56→07:16)
[2016-10-17] MEDS: Phenylephrine 10% Opth Soln 5ml LEFT EYE SCH ×3 (06:56→07:16)
[2016-10-17] MEDS: Gatifloxacin Opth Solution 0.5% LEFT EYE SCH ×3 (06:57→07:16)
--- NOTE | 2016-10-17 07:00 | Anethesia Preoperative Eval ---
Anesthesia Pre-op PMH/ROS General Date of Evaluation: Oct 17, 2016 Anesthesiologist: Steve ASA Score: ASA 2 Mallampati Score Class I : Soft palate, uvula, fauces, pillars visible Class II: Soft palate, uvula, fauces visible Class III: Soft palate, base of uvula visible Class IV: Only hard plate visible Mallampati Classification: Class II Surgeon: Rafia Diagnosis: Left cataract Surgical Procedure: Left cataract extraction with IOL Anesthesia History: none Family History: no anesthesia problems Allergies: Coded Allergies: No Known Allergies (Unverified , 10/06/16) Medications: see eMAR Past Medical History Cardiovascular: Reports: HTN, Denies: CAD, [place], arrhythmia, other, valve dz Pulmonary: Denies: COPD, YOBANY, asthma, other Gastrointestinal/Genitourinary: Denies: CRI, ESRD, GERD, other Neurologic/Psychiatric: Denies: CVA, TIA, dementia, depression/anxiety, other Endocrine: Denies: DM, hypothyroidism, other, steroids HEENT: Denies: [place]EDE (L), DIOMEDE (R), cataract (L), cataract (R), glaucoma, other Hematology/Immune: Denies: DVT, anemia, bleeding disorder, other Musculoskeletal/Integumentary: Reports: OA, Denies: DDD, DJD, RA, edema, other PSxH Narrative: Left shoulder and right arm sx Anesthesia Pre-op Phys. Exam Physician Exam see chart Constitutional: NAD Cardiovascular: RRR Respiratory: CTA Airway Exam Mallampati Score: Class II MO: full ROM: full Anesthesia Pre-op A/P Labs see chart Studies Pre-op Studies: EKG - sr Risk Assessment & Plan Assessment: ASA II Plan: MAC Status Change Before Surgery: No Pre-Antibiotics Drug: N/A CELINE YOST M.D. Oct 17, 2016 07:00
--- NOTE | 2016-10-17 09:25 | Brief Operative Note ---
Immediate Post Operative Note Operative Note Chief Complaint: Blurry vision, left eye. Difficulty driving and reading Pre-op Diagnosis: 1. CATARACT ,LEFT EYE Procedure: Cataract extraction with phaco and PC IOL implantation, left eye Post-op Diagnosis: same as pre-op Surgeon: Lynda Tapia MD Garment Turner: None Additional Surgeons: None Anesthesiologist: Dr. Wilson Anesthesia: MAC Specimen: none Complications: none Condition: stable Estimated Blood Loss: none Drains: none Implant(s) used?: Yes - Monofocal PC IOl implanted in the left eye withput complication LYNDA TIJERINA Oct 17, 2016 09:25
--- NOTE | 2016-10-17 09:25 | Immediate Post-Op Evaluation ---
Immediate Post-Op Evalulation Immediate Post-Op Evalulation Procedure: Left cataract extraction with IOL Date of Evaluation: Oct 17, 2016 Time of Evaluation: 09:27 IV Fluids: 200 Blood Products: 0 Estimated Blood Loss: 0 Urinary Output: 0 Blood Pressure Systolic: 156 Blood Pressure Diastolic: 88 Pulse Rate: 86 Respiratory Rate: 16 O2 Sat by Pulse Oximetry: 96 Temperature (Fahrenheit): 97.7 Pain Score (1-10): 0 Nausea: No Vomiting: No Complications 0 Patient Status: awake, reacts, patent, none Hydration Status: adequate Drug: N/A CELINE YOST M.D. Oct 17, 2016 09:25
--- NOTE | 2016-10-17 10:58 | 48 Hour Post Anesthesia Eval ---
Post Anesthesia Evaluation Procedure: Left cataract extraction with IOL Date of Evaluation: Oct 17, 2016 Time of Evaluation: 10:25 Blood Pressure Systolic: 132 0: 83 Pulse Rate: 82 Respiratory Rate: 20 Temperature (Fahrenheit): 97.8 O2 Sat by Pulse Oximetry: 94 Airway: patent Nausea: No Vomiting: No Pain Intensity: 0 Hydration Status: adequate Cardiopulmonary Status: at baseline Mental Status/LOC: patient returned to baseline Post-Anesthesia Complications: 0 Follow-up care needed: ready to discharge CELINE YOST M.D. Oct 17, 2016 10:58
--- NOTE | 2016-10-17 13:41 | Diagnostic Imaging Report ---
Indications: Shortness of breath Technique: Portable AP chest Findings: Comparison: None Left hemidiaphragm is mildly elevated. Increased interstitial markings are present in both lower lung zones, left greater than right. Superimposed linear density left lung base. Heart size, pulmonary vasculature within normal limits. No pleural abnormality. IMPRESSION: Bibasal interstitial prominence, nonspecific, acuity indeterminate. An element of pulmonary edema in the setting of congestive heart failure not excludable. Subsegmental atelectasis versus scarring left lung base
[2016-10-17 17:51] LABS: TROPONIN I < 0.30 ng/mL (<=0.30)
[2016-10-17 18:00] LABS: CALCIUM 7.8 mg/dL (8.6-10.2); CREATININE 1.2 mg/dL (0.7-1.2); GLOMERULAR FILTRATION RATE 59.9 mL/min (>60); POTASSIUM 3.5 mEQ/L (3.4-4.9)
[2016-10-17 18:13] LABS: MEAN CORPUSCULAR HEMOGLOBIN 32.6 PG (27.0-31.0); MEAN CORPUSCULAR HGB CONC 36.3 G/DL (32.0-36.0); MEAN CORPUSCULAR VOLUME 90 FL (80-99); MEAN PLATELET VOLUME 8.8 FL (6.5-10.1); PLATELET COUNT 101 K/UL (150-450); RED BLOOD COUNT 5.58 M/UL (4.70-6.10); RED CELL DISTRIBUTION WIDTH 11.5 % (11.6-14.8)
[2016-10-17 18:15] LABS: LYMPHOCYTES % (AUTO) 20.8 % (20.0-45.0); MONOCYTES % (AUTO) 4.1 % (1.0-10.0); NEUTROPHILS % (AUTO) 72.9 % (45.0-75.0); WHITE BLOOD COUNT 1.8 K/UL (4.8-10.8)
[2016-10-17 18:16] LABS: BASOPHILS % (AUTO) 1.4 % (0.0-2.0); EOSINOPHILS % (AUTO) 0.8 % (0.0-3.0)
--- NOTE | 2016-10-17 20:38 | Operative Note - Dictated ---
DATE OF OPERATION: 10/17/2016 FACILITY: [facility]. SURGEON: Kumar Camargo M.D. NUTRITION COORDINATOR: None. ANESTHESIOLOGIST: Dr. Wilson. ANESTHESIA: Monitored anesthesia care (MAC). PREOPERATIVE DIAGNOSIS: Cataract extraction, left eye. POSTOPERATIVE DIAGNOSIS: Cataract extraction, left eye. SURGERY PERFORMED: Cataract extraction with phacoemulsification and posterior chamber intraocular lens implantation in the left eye. INDICATION FOR SURGERY: The patient is a 71-year-old gentleman with history of using Diovan and arthritis he is using Mobic. He has had cataract surgery in the right eye last week and he is happy with the results. He is complaining of blurry vision in the left eye. On examination of the left eye, the cornea is clear. Anterior chamber is clean and quiet. Pupillary reflex is normal. There is no RAPD. There is 3+ nuclear sclerosis and 2+ cortical cataract. To improve the vision in the left eye, the cataract has to be removed and posterior chamber intraocular lens has to be implanted. INFORMED CONSENT: The nature of the surgery, risks, benefits, alternatives, and potential complications were explained in detail to the patient in language Farsi. The potential complications including, but not limited to bleeding, infection, posterior capsular rupture, lens subluxation, flat anterior chamber, iris prolapse, uveitis, corneal edema, macular edema, endophthalmitis, retinal detachment, loss of vision, and even loss of the eye were all explained in detail to the patient. The patient voiced understanding and accepted all the complications. The alternatives including accommodating lens, multifocal lens, toric lens, conventional cataract surgery with limbal relaxing incision (LRI) for treatment of astigmatism were all explained in detail to the patient. The patient voiced understanding. The patient elected to have conventional cataract surgery without multifocal lens in the left eye. Then, he signed the consent form, which is in the chart. DESCRIPTION OF SURGERY AND FINDINGS: Following that, the patient was taken to the operation room in a stable condition. Lidocaine gel Ak[place] 3.5% was applied to the conjunctivae of the left eye. IV sedation was given by the anesthesiologist, Dr. Wilson. After adequate anesthesia and sedation had been achieved, then the left eye was prepped and draped in a sterile fashion for intraocular surgery. Following that, a speculum was placed in the left eye. Following that, using a Super Sharp knife, a clear corneal side port was created. Following that, a 1% lidocaine without preservative (MPF) was injected into the anterior chamber. Viscoelastic agent Healon was injected into the anterior chamber. Following that, a clear corneal temporal keratotomy was performed. Viscoelastic agent was injected into the anterior chamber again. Following that, Vision Blue was injected under the viscoelastic agent to stain the anterior capsule. Following that, a fresh clear viscoelastic agent was injected into the anterior chamber again. Under the viscoelastic agent, an anterior capsulotomy was performed in the fashion of capsulorrhexis beautifully. Following that, the viscoelastic agent was removed from the anterior chamber. Hydrodissection and hydrodelineation was performed using balanced salt solution and the nucleus was freed. Following that, Healon fresh viscoelastic agent was injected into the anterior chamber to protect the endothelium of the cornea. Following that, using a phacoemulsification machine in the fashion of horizontal chop, the nucleus was removed in total. Following that, using irrigation aspiration unit, the cortical material was removed from the capsular bag and the capsular bag was polished. Following that, the capsular bag was filled with viscoelastic agent Healon. Following that, a +25 diopter ZCB00 foldable PCIOL with serial #[id number] was injected into the capsular bag. Using a Sinskey hook, the lens was manipulated and put in the proper position. Following that, the viscoelastic agent was removed from the anterior and posterior part of the lens. Following that, the anterior chamber was filled with balanced salt solution and the wounds were hydrated with balanced salt solution. Following that, the wound was checked for leakage and there was no leakage. Vigamox eyedrops were applied to conjunctiva of the left eye. The patient tolerated the surgery without complications. At the end of the surgery, the eye was patched with a clear sterile fenestrated shield. Following that, the patient was transferred to the recovery room. In the recovery room, 125 mg Diamox was given by mouth stat. Postoperative orders and directions were given to the patient. The patient will be discharged home upon stabilization. The patient will be followed in my office tomorrow morning at 7 a.m. Kumar Camargo M.D. DR: ALEJANDRO JOB#: [id number] CC: MARCIO
--- NOTE | 2016-10-17 20:38 | Discharge Summary ---
DATE OF ADMISSION: 10/17/2016 DATE OF DISCHARGE: 10/17/2016 REASON FOR HOSPITALIZATION: Cataract, left eye. SURGERY PERFORMED: Cataract extraction with phacoemulsification and posterior chamber intraocular lens implantation in the left eye. PATIENT'S CONDITION IN THE HOSPITAL: The patient tolerated the surgery without complications. PATIENT'S CONDITION AT DISCHARGE: The patient was stable at discharge. DISCHARGE MEDICATIONS: 1. Prednisolone eyedrops one drop q.i.d., left eye. 2. Vigamox eyedrops one drop q.i.d., left eye. 3. Diclofenac sodium one drop q.i.d., left eye. POSTOPERATIVE ORDERS: The patient has to rest at home with no serious bending, no lifting. No watching TV tonight. POSTOPERATIVE FOLLOWUP: The patient will be followed in my office tomorrow morning at 7 a.m. Kumar Camargo M.D. DR: ALEJANDRO JOB#: [id number] CC: MARCIO
--- NOTE | 2016-10-23 09:18 | History and Physical Report ---
DATE OF ADMISSION: 10/17/2016 REASON FOR ADMISSION: This 71-year-old male after cataract surgery on the left eye was transferred to postop. The patient developed chills, vomiting x2 and palpitation. The patient had EKG changes. He had blood pressure to 90s and O2 saturation of 90%. Acute response team was called. The patient was transferred to the emergency room where he was examined and well. The patient's troponin was negative. Laboratory work showed white blood cells is low 1.0, hemoglobin 18.4, and hematocrit 55. PAST MEDICAL HISTORY: Remarkable for benign prostatic hypertrophy and GERD. He had surgery on both eyes, cataract. MEDICATIONS: The patient takes no medication at home. SOCIAL HISTORY: He was a smoker in the past. Occasional alcohol. No history of myocardial infarction, chest pain or heart attack. No diabetes. No stroke. No hypertension. PHYSICAL EXAMINATION: GENERAL: Awake, alert and diaphoretic. HEENT: Head, normocephalic. Baldness. Eye after cataract surgery. Nose, clear. Mouth, dry and clear. Herpetic lesion on the lip. SKIN: No jaundice. No rashes except for herpetic lesions. NECK: No jugular venous distention. Carotids are +2. Trachea midline. CHEST: Mild kyphosis. LUNGS: No rales or rhonchi. No wheezing. HEART: Rate, sinus tachycardia. No murmur. No S3 or S4. ABDOMEN: Soft. No rebound. No palpable mass. EXTREMITIES: No edema. No varicose veins. No deformities. NEUROLOGIC: No asymmetry or tremor. No peripheral deficiency. IMPRESSION: 1. Leukopenia, cause to be determined. 2. Respiratory distress and hypotension. 3. Viral syndrome. 4. Status post left eye cataract surgery. 5. Benign prostatic hypertrophy. 6. . PLAN: Admit to monitored bed. Obtain Cardiology consultation. Follow up troponin level and EKG. Workup on leukopenia. Intravenous fluid. Await for cultures, urine, and blood. Obtain Infectious Disease consultation. The patient started on Rocephin 1 g daily intravenous and vancomycin 500 mg twice a day. Prognosis is guarded. Carole Christian M.D. DR: HARLEY JOB#: [id number] CC:
== END | disposition home or self-care (01) ==
LOC: SUR 06:29
DX: H25.12 Age-related nuclear cataract, left eye (principal); H25.012 Cortical age-related cataract, left eye; J95.89 Other postprocedural complications and disorders of respiratory system, not elsewhere classified; R06.00 Dyspnea, unspecified; I95.81 Postprocedural hypotension; D72.819 Decreased white blood cell count, unspecified; Y83.8 Other surgical procedures as the cause of abnormal reaction of the patient, or of later complication, without mention of misadventure at the time of the procedure; Y92.238 Other place in hospital as the place of occurrence of the external cause; B34.9 Viral infection, unspecified; I10 Essential (primary) hypertension; M19.90 Unspecified osteoarthritis, unspecified site; N40.0 Benign prostatic hyperplasia without lower urinary tract symptoms; K21.9 Gastro-esophageal reflux disease without esophagitis; Z87.891 Personal history of nicotine dependence
CPT/HCPCS: 36415; 66984; 71010; 80048; 84484; 85025; J0171; J1100; J1200; J2765; J3010; J7120; V2632; 94003; 94150